=== PATIENT | male | born 1965 | race Caucasian/White ===

== ENCOUNTER 2020-01-09 00:08 | Inpatient (IN) | payer SELFPAY ==
[2020-01-09] MEDS ORDERED: Ondansetron 4 MG/2 ML SDV IVPUSH ONE (00:38)
[2020-01-09] MEDS ORDERED: Famotidine 20 MG/2 ML SDV IVPUSH ONE (00:38)
[2020-01-09] MEDS ORDERED: HYDROmorphone 0.5 MG/0.5 ML Syringe IVPUSH ONE ×3 (00:38→02:57)
[2020-01-09] MEDS ORDERED: Sodium Chloride 0.9% 1,000 ML IV SCH (00:45)
[2020-01-09] MEDS: Sodium Chloride 0.9% 10 ML Syringe FLUSH PRN (00:50)
--- NOTE | 2020-01-09 01:13 | EDM.PDOC ---
ED HPI GENERAL MEDICAL PROBLEM - General Chief Complaint: Genitourinary Problem Stated Complaint: [facility] Time Seen by Provider: 01/09/20 00:37 Source of Information: Reports: Patient, RN Notes Reviewed - History of Present Illness INITIAL COMMENTS - FREE TEXT/NARRATIVE: 54-year-old male has been brought here by [facility] for evaluation of nausea vomiting abdominal and flank discomfort. States he got sick 2 days ago with abdominal pain nausea vomiting. The vomiting has continued. He also has pain of the R abd and right flank radiating to the right back and also to the right groin. There has been no diarrhea. No obvious fever. No chest pain or difficulty breathing. No prior abd surgery. Right Groin Pain Score (Numeric/FACES): 9 - Related Data Allergies Allergy/AdvReac Type Severity Reaction Status Date / Time No Known Allergies Allergy Verified 01/09/20 01:04 Home Meds: Home Meds . [No Known Home Meds] 01/09/20 [History] Past Medical History - Past Health History Medical/Surgical History: Denies Medical/Surgical History Social & Family History - Family History Family Medical History: Noncontributory - Tobacco Use Used Tobacco, but Quit: No - Caffeine Use Caffeine Use: Reports: None - Recreational Drug Use Recreational Drug Use: No ED ROS GENERAL - Review of Systems Review Of Systems: See Below Constitutional: Reports: Chills. Denies: Fever HEENT: Reports: No Symptoms Respiratory: Denies: Shortness of Breath Cardiovascular: Denies: Chest Pain GI/Abdominal: Reports: Abdominal Pain, Nausea, Vomiting. Denies: Diarrhea, Hematochezia, Melena : Reports: No Symptoms Musculoskeletal: Reports: Back Pain (Sided) Skin: Reports: No Symptoms Neurological: Reports: Dizziness ED EXAM, GI/ABD - Physical Exam Exam: See Below General Appearance: Alert, Moderate Distress Throat/Mouth: Normal Inspection, Normal Oropharynx Head: Atraumatic Neck: Supple Respiratory/Chest: No Respiratory Distress, Lungs Clear, Normal Breath Sounds Cardiovascular: Regular Rate, Rhythm GI/Abdominal Exam: Guarding, Rebound, Tender (Tender right lower abdomen but also tender mid abdomen and right upper abdomen) Back Exam: CVA Tenderness (R) Extremities: Normal Inspection, Normal Range of Motion Neurological: Alert, No Motor/Sensory Deficits Skin Exam: Warm, Dry, Pallor Course - Vital Signs Last Recorded V/S: Last Vital Signs Temp 97.6 F 01/09/20 00:09 Pulse 105 H 01/09/20 05:30 Resp 20 01/09/20 03:00 BP 142/76 H 01/09/20 05:51 Pulse Ox 93 L 01/09/20 05:30 - Orders/Labs/Meds Orders: Active Orders 24 hr Category Date Time Status Admission Status [Patient Status] [ADT] Routine ADT 01/09/20 05:07 Active Peripheral IV Care [RC] . DIRECTED Care 01/09/20 00:38 Active Abdomen Pelvis wo Cont [CT] Stat Exams 01/09/20 00:39 Taken UA W/MICROSCOPIC [URIN] Stat Lab 01/09/20 00:30 Ordered Dextrose 5%-Lactated Ringers 1,000 ml Med 01/09/20 04:00 Active IV ASDIRECTED Sodium Chloride 0.9% [Normal Saline] 1,000 ml Med 01/09/20 00:45 Active IV ONETIME Sodium Chloride 0.9% [Saline Flush] Med 01/09/20 00:38 Active 10 ml FLUSH ASDIRECTED PRN Peripheral IV Insertion Adult [OM.PC] Stat Oth 01/09/20 00:38 Ordered Schedule Procedure [COMM] Stat Oth 01/09/20 01:39 Ordered Medication Orders Sodium Chloride (Normal Saline) 1,000 mls @ 999 mls/hr IV ONETIME [facility] Last Admin: 01/09/20 00:45 Dose: 999 mls/hr Dextrose/Lactated Ringer's (Dextrose 5%-Lactated Ringers) 1,000 mls @ 150 mls/ hr IV ASDIRECTED [facility] Last Admin: 01/09/20 04:00 Dose: 150 mls/hr Sodium Chloride (Saline Flush) 10 ml FLUSH ASDIRECTED PRN PRN Reason: Keep Vein Open Last Admin: 01/09/20 00:50 Dose: 10 ml Labs: Laboratory Tests 01/09/20 01/09/20 01/09/20 Range/Units 00:42 00:42 00:42 WBC 10.85 H (4.23-9.07) K/mm3 RBC 5.45 (4.63-6.08) M/mm3 Hgb 16.2 (13.7-17.5) gm/dl Hct 48.3 (40.1-51.0) % MCV 88.6 (79.0-92.2) fl MCH 29.7 (25.7-32.2) pg MCHC 33.5 (32.2-35.5) g/dl RDW Std Deviation 42.7 (35.1-43.9) fL Plt Count 369 H (163-337) K/mm3 MPV 9.5 (9.4-12.3) fl Neut % (Auto) 82.6 H (34.0-67.9) % Lymph % (Auto) 8.8 L (21.8-53.1) % [place] % (Auto) 7.9 (5.3-12.2) % Eos % (Auto) 0.3 L (0.8-7.0) Baso % (Auto) 0.1 (0.1-1.2) % Neut # (Auto) 8.96 H (1.78-5.38) K/mm3 Lymph # (Auto) 0.96 L (1.32-3.57) K/mm3 [place] # (Auto) 0.86 H (0.30-0.82) K/mm3 Eos # (Auto) 0.03 L (0.04-0.54) K/mm3 Baso # (Auto) 0.01 (0.01-0.08) K/mm3 Manual Slide Review Abnormal smear Sodium 137 (136-145) mEq/L Potassium 4.1 (3.5-5.1) mEq/L Chloride 101 (98-107) mEq/L Carbon Dioxide 21 (21-32) mEq/L Anion Gap 19.1 H (5-15) BUN 18 (7-18) mg/dL Creatinine 1.4 H (0.7-1.3) mg/dL Est Cr Clr Drug Dosing 72.09 mL/min Estimated GFR (MDRD) 53 (>60) mL/min BUN/Creatinine Ratio 12.9 L (14-18) Glucose 197 H (74-106) mg/dL Calcium 9.1 (8.5-10.1) mg/dL Total Bilirubin 0.9 (0.2-1.0) mg/dL AST 13 L (15-37) U/L ALT 25 (16-63) U/L Alkaline Phosphatase 41 L (46-116) U/L C-Reactive Protein 11.6 H* (<1.0) mg/dL Total Protein 8.2 (6.4-8.2) g/dl Albumin 3.9 (3.4-5.0) g/dl Globulin 4.3 gm/dL Albumin/Globulin Ratio 0.9 L (1-2) Meds: Medications Generic Name Dose Route Start Last Admin Trade Name Priya PRN Reason Stop Dose Admin Sodium Chloride 1,000 mls @ 999 mls/hr 01/09/20 00:45 01/09/20 00:45 Normal Saline IV 999 mls/hr ONETIME [facility] Administration Dextrose/Lactated Ringer's 1,000 mls @ 150 mls/hr 01/09/20 04:00 01/09/20 04: 00 Dextrose 5%-Lactated Ringers IV 150 mls/hr ASDIRECTED [facility] Administration Sodium Chloride 10 ml 01/09/20 00:38 01/09/20 00:50 Saline Flush FLUSH 10 ml ASDIRECTED PRN Administration Keep Vein Open Discontinued Medications Generic Name Dose Route Start Last Admin Trade Name Priya PRN Reason Stop Dose Admin Famotidine 20 mg 01/09/20 00:38 01/09/20 00:50 Pepcid IVPUSH 01/09/20 00:39 20 mg ONETIME ONE Administration Fentanyl Confirm 01/09/20 06:03 Sublimaze Administered 01/09/20 06:04 Dose 250 mcg .ROUTE .STK-MED ONE Hydromorphone HCl 0.5 mg 01/09/20 00:38 01/09/20 00:49 Dilaudid IVPUSH 01/09/20 00:39 0.5 mg ONETIME ONE Administration Hydromorphone HCl 0.25 mg 01/09/20 01:35 01/09/20 01:38 Dilaudid IVPUSH 01/09/20 01:36 0.25 mg ONETIME ONE Administration Hydromorphone HCl 0.5 mg 01/09/20 02:57 01/09/20 03:01 Dilaudid IVPUSH 01/09/20 02:58 0.5 mg ONETIME ONE Administration Ertapenem 1 gm/ Sodium 50 mls @ 100 mls/hr 01/09/20 01:38 01/09/20 01:48 Chloride IV 01/09/20 02:07 100 mls/hr ONETIME ONE Administration Lactated Ringer's 1,000 mls @ 999 mls/hr 01/09/20 02:12 01/09/20 02:55 Ringers, Lactated IV 01/09/20 03:12 999 mls/hr .BOLUS ONE Administration Dextrose/Lactated Ringer's Confirm 01/09/20 03:55 01/09/20 05:22 Dextrose 5%-Lactated Ringers Administered 01/09/20 03:56 Not Given Dose 1,000 mls @ as directed .ROUTE .STK-MED ONE Lactated Ringer's Confirm 01/09/20 06:04 Ringers, Lactated Administered 01/09/20 06:05 Dose 1,000 mls @ as directed .ROUTE .STK-MED ONE Lidocaine HCl Confirm 01/09/20 05:32 Xylocaine 1% Administered 01/09/20 05:33 Dose 50 ml .ROUTE .STK-MED ONE Midazolam HCl Confirm 01/09/20 06:02 Versed 1 Mg/Ml Administered 01/09/20 06:03 Dose 2 mg .ROUTE .STK-MED ONE Ondansetron HCl 4 mg 01/09/20 00:38 01/09/20 00:50 Zofran IVPUSH 01/09/20 00:39 4 mg ONETIME ONE Administration Propofol Confirm 01/09/20 06:02 Diprivan 20 Ml Administered 01/09/20 06:03 Dose 200 mg .ROUTE .STK-MED ONE - Re-Assessments/Exams Free Text/Narrative Re-Assessment/Exam: 01/09/20 01:40. Viread is called, patient has acute appendicitis inflamed dilated appendix but no perforation or abscess at this time. Would count has come back elevated in the 10,000 range. C-reactive protein of greater than 12. I have discussed this with Dr. Welch, Gen. Surgeon button broacher. He agrees with plan to start IV abx, have requested invanz. He would like the OR crew called to be ready to operate at 6 AM. 01:55. We will keep patient in ED, continue IV fluid, IV pain medication as needed until it is time for him to go over for surgery. Departure - Departure Time of Disposition: 02:13 Disposition: DC/Tfer to [facility] Condition: Fair Clinical Impression: Appendicitis Qualifiers: Appendicitis type: acute appendicitis Acute appendicitis type: unspecified acute appendicitis type Qualified Code(s): K35.80 - Unspecified acute appendicitis - Discharge Information Sepsis Event Note - Evaluation Sepsis Screening Result: No Definite Risk - Focused Exam Vital Signs: Vital Signs Temp Pulse Pulse Resp BP Pulse Ox 01/09/20 05:51 142/76 H 01/09/20 05:30 105 H 93 L 01/09/20 05:15 107 H 94 L 01/09/20 05:00 108 H 92 L 01/09/20 04:45 101 H 94 L 01/09/20 04:30 106 H 93 L 01/09/20 04:15 103 H 92 L 01/09/20 04:00 99 92 L 01/09/20 03:45 98 91 L 01/09/20 03:30 99 92 L 01/09/20 03:15 100 91 L 01/09/20 03:00 98 20 92 L 01/09/20 02:45 98 17 91 L 01/09/20 02:30 98 19 91 L 01/09/20 02:15 94 20 93 L 01/09/20 02:00 90 21 H 93 L 01/09/20 01:51 95 18 93 L 01/09/20 00:09 97.6 F 92 20 163/88 H 97 Date Exam was Performed: 01/09/20 Time Exam was Performed: 06:06 - My Orders Last 24 Hours: My Active Orders 01/09/20 00:30 UA W/MICROSCOPIC [URIN] Stat 01/09/20 00:38 Peripheral IV Care [RC] . DIRECTED Sodium Chloride 0.9% [Saline Flush] 10 ml FLUSH ASDIRECTED PRN Peripheral IV Insertion Adult [OM.PC] Stat 01/09/20 00:39 Abdomen Pelvis wo Cont [CT] Stat 01/09/20 00:45 Sodium Chloride 0.9% [Normal Saline] 1,000 ml IV ONETIME 01/09/20 01:39 Schedule Procedure [COMM] Stat 01/09/20 04:00 Dextrose 5%-Lactated Ringers 1,000 ml IV ASDIRECTED 01/09/20 05:07 Admission Status [Patient Status] [ADT] Routine - Assessment/Plan Last 24 Hours: My Active Orders 01/09/20 00:30 UA W/MICROSCOPIC [URIN] Stat 01/09/20 00:38 Peripheral IV Care [RC] . DIRECTED Sodium Chloride 0.9% [Saline Flush] 10 ml FLUSH ASDIRECTED PRN Peripheral IV Insertion Adult [OM.PC] Stat 01/09/20 00:39 Abdomen Pelvis wo Cont [CT] Stat 01/09/20 00:45 Sodium Chloride 0.9% [Normal Saline] 1,000 ml IV ONETIME 01/09/20 01:39 Schedule Procedure [COMM] Stat 01/09/20 04:00 Dextrose 5%-Lactated Ringers 1,000 ml IV ASDIRECTED 01/09/20 05:07 Admission Status [Patient Status] [ADT] Routine
[2020-01-09] MEDS ORDERED: Ertapenem 1 GM in Sodium Chloride 0.9% 50 ML IV ONE (01:38)
[2020-01-09] MEDS ORDERED: Lactated Ringers 1,000 ML IV ONE (02:12)
[2020-01-09] MEDS ORDERED: Dextrose 5%-Lactated Ringers 1,000 ML ONE (03:55)
[2020-01-09] MEDS ORDERED: Dextrose 5%-Lactated Ringers 1,000 ML IV SCH (04:00)
[2020-01-09] MEDS ORDERED: Lidocaine 1% 50 ML MDV ONE (05:32)
--- NOTE | 2020-01-09 05:57 | PCM.PREANE ---
Preanesthetic Assessment - Review of Systems Other: Reports: None - Physical Assessment NPO Status Date: 01/08/20 NPO Status Time: 21:00 Vital Signs: Last Vital Signs Temp 97.6 F 01/09/20 00:09 Pulse 106 H 01/09/20 04:30 Resp 20 01/09/20 03:00 BP 163/88 H 01/09/20 00:09 Pulse Ox 93 L 01/09/20 04:30 Height: 1.91 m Weight: 99.79 kg ASA Class: 2E Mental Status: Alert & Oriented x3 Airway Class: Mallampati = 3 Dentition: Reports: Normal Dentition Thyro-Mental Finger Breadths: 3 Mouth Opening Finger Breadths: 3 ROM/Head Extension: Full Lungs: Clear to Auscultation, Normal Respiratory Effort Cardiovascular: Regular Rate, Regular Rhythm - Lab Values: Laboratory Last Values WBC 10.85 K/mm3 (4.23-9.07) H 01/09/20 00:42 RBC 5.45 M/mm3 (4.63-6.08) 01/09/20 00:42 Hgb 16.2 gm/dl (13.7-17.5) 01/09/20 00:42 Hct 48.3 % (40.1-51.0) 01/09/20 00:42 MCV 88.6 fl (79.0-92.2) 01/09/20 00:42 MCH 29.7 pg (25.7-32.2) 01/09/20 00:42 MCHC 33.5 g/dl (32.2-35.5) 01/09/20 00:42 RDW Std Deviation 42.7 fL (35.1-43.9) 01/09/20 00:42 Plt Count 369 K/mm3 (163-337) H 01/09/20 00:42 MPV 9.5 fl (9.4-12.3) 01/09/20 00:42 Neut % (Auto) 82.6 % (34.0-67.9) H 01/09/20 00:42 Lymph % (Auto) 8.8 % (21.8-53.1) L 01/09/20 00:42 [place] % (Auto) 7.9 % (5.3-12.2) 01/09/20 00:42 Eos % (Auto) 0.3 (0.8-7.0) L 01/09/20 00:42 Baso % (Auto) 0.1 % (0.1-1.2) 01/09/20 00:42 Neut # (Auto) 8.96 K/mm3 (1.78-5.38) H 01/09/20 00:42 Lymph # (Auto) 0.96 K/mm3 (1.32-3.57) L 01/09/20 00:42 [place] # (Auto) 0.86 K/mm3 (0.30-0.82) H 01/09/20 00:42 Eos # (Auto) 0.03 K/mm3 (0.04-0.54) L 01/09/20 00:42 Baso # (Auto) 0.01 K/mm3 (0.01-0.08) 01/09/20 00:42 Manual Slide Review Abnormal smear 01/09/20 00:42 Sodium 137 mEq/L (136-145) 01/09/20 00:42 Potassium 4.1 mEq/L (3.5-5.1) 01/09/20 00:42 Chloride 101 mEq/L (98-107) 01/09/20 00:42 Carbon Dioxide 21 mEq/L (21-32) 01/09/20 00:42 Anion Gap 19.1 (5-15) H 01/09/20 00:42 BUN 18 mg/dL (7-18) 01/09/20 00:42 Creatinine 1.4 mg/dL (0.7-1.3) H 01/09/20 00:42 Est Cr Clr Drug Dosing 72.09 mL/min 01/09/20 00:42 Estimated GFR (MDRD) 53 mL/min (>60) 01/09/20 00:42 BUN/Creatinine Ratio 12.9 (14-18) L 01/09/20 00:42 Glucose 197 mg/dL (74-106) H 01/09/20 00:42 Calcium 9.1 mg/dL (8.5-10.1) 01/09/20 00:42 Total Bilirubin 0.9 mg/dL (0.2-1.0) 01/09/20 00:42 AST 13 U/L (15-37) L 01/09/20 00:42 ALT 25 U/L (16-63) 01/09/20 00:42 Alkaline Phosphatase 41 U/L (46-116) L 01/09/20 00:42 C-Reactive Protein 11.6 mg/dL (<1.0) H* 01/09/20 00:42 Total Protein 8.2 g/dl (6.4-8.2) 01/09/20 00:42 Albumin 3.9 g/dl (3.4-5.0) 01/09/20 00:42 Globulin 4.3 gm/dL 01/09/20 00:42 Albumin/Globulin Ratio 0.9 (1-2) L 01/09/20 00:42 - Allergies Allergies/Adverse Reactions: Allergies Allergy/AdvReac Type Severity Reaction Status Date / Time No Known Allergies Allergy Verified 01/09/20 01:04 - Acknowledgements Anesthesia Type Planned: General Anesthesia Pt an Appropriate Candidate for the Planned Anesthesia: Yes Alternatives and Risks of Anesthesia Discussed w Pt/Guardian: Yes Pt/Guardian Understands and Agrees with Anesthesia Plan: Yes PreAnesthesia Questionnaire - Past Health History Medical/Surgical History: Denies Medical/Surgical History - SUBSTANCE USE Tobacco Use Within Last Twelve Months: Smokeless Tobacco Recreational Drug Use History: No - HOME MEDS Home Medications: Home Meds . [No Known Home Meds] 01/09/20 [History] - CURRENT (IN HOUSE) MEDS Current Meds: Current Medications Sodium Chloride (Normal Saline) 1,000 mls @ 999 mls/hr IV ONETIME [facility] Last Admin: 01/09/20 00:45 Dose: 999 mls/hr Dextrose/Lactated Ringer's (Dextrose 5%-Lactated Ringers) 1,000 mls @ 150 mls/ hr IV ASDIRECTED [facility] Last Admin: 01/09/20 04:00 Dose: 150 mls/hr Sodium Chloride (Saline Flush) 10 ml FLUSH ASDIRECTED PRN PRN Reason: Keep Vein Open Last Admin: 01/09/20 00:50 Dose: 10 ml Discontinued Medications Famotidine (Pepcid) 20 mg IVPUSH ONETIME ONE Stop: 01/09/20 00:39 Last Admin: 01/09/20 00:50 Dose: 20 mg Hydromorphone HCl (Dilaudid) 0.5 mg IVPUSH ONETIME ONE Stop: 01/09/20 00:39 Last Admin: 01/09/20 00:49 Dose: 0.5 mg Hydromorphone HCl (Dilaudid) 0.25 mg IVPUSH ONETIME ONE Stop: 01/09/20 01:36 Last Admin: 01/09/20 01:38 Dose: 0.25 mg Hydromorphone HCl (Dilaudid) 0.5 mg IVPUSH ONETIME ONE Stop: 01/09/20 02:58 Last Admin: 01/09/20 03:01 Dose: 0.5 mg Ertapenem 1 gm/ Sodium (Chloride) 50 mls @ 100 mls/hr IV ONETIME ONE Stop: 01/09/20 02:07 Last Admin: 01/09/20 01:48 Dose: 100 mls/hr Lactated Ringer's (Ringers, Lactated) 1,000 mls @ 999 mls/hr IV .BOLUS ONE Stop: 01/09/20 03:12 Last Admin: 01/09/20 02:55 Dose: 999 mls/hr Dextrose/Lactated Ringer's (Dextrose 5%-Lactated Ringers) Confirm Administered Dose 1,000 mls @ as directed .ROUTE .STK-MED ONE Stop: 01/09/20 03:56 Last Admin: 01/09/20 05:22 Dose: Not Given Lidocaine HCl (Xylocaine 1%) Confirm Administered Dose 50 ml .ROUTE .STK-MED ONE Stop: 01/09/20 05:33 Ondansetron HCl (Zofran) 4 mg IVPUSH ONETIME ONE Stop: 01/09/20 00:39 Last Admin: 01/09/20 00:50 Dose: 4 mg
[2020-01-09] MEDS ORDERED: Propofol 200 MG/20 ML SDV ONE (06:02)
[2020-01-09] MEDS ORDERED: Midazolam 1 MG/ML 2 ML SDV ONE (06:02)
[2020-01-09] MEDS ORDERED: fentaNYL 250 MCG/5 ML SDV ONE (06:03)
[2020-01-09] MEDS ORDERED: Lidocaine 1% 6 ML ONE (06:04)
[2020-01-09] MEDS ORDERED: Lactated Ringers 1,000 ML ONE ×2 (06:04→06:39)
[2020-01-09] MEDS ORDERED: Rocuronium 50 MG/5 ML Vial ONE (06:06)
[2020-01-09] MEDS ORDERED: Succinylcholine/Sod PF 100 MG/5 ML SYRINGE IV ONE (06:08)
--- NOTE | 2020-01-09 06:12 | PCM.HP.2 ---
H&P History of Present Illness - General Date of Service: 01/09/20 Admit Problem/Dx: Admission Diagnosis/Problem Admission Diagnosis/Problem Appendicitis Source of Information: Patient History Limitations: Reports: No Limitations - History of Present Illness Initial Comments - Free Text/Narative: Patient started having abdominal pain 2 days prior to presentation. The pain was sharp, located in the RLQ, radiating to the right scrotum, associated with nausea and vomiting. Patient reports no fevers or chills. He reports that he could not keep anything down. Pain progressively got worse until yesterday where he could not get up from a bathroom thats when he called an ambulance and taken to the ED. Onset of Symptoms: Reports: Gradual Duration of Symptoms: Reports: Getting Worse Location: Reports: Abdomen Quality: Reports: Sharp Severity: Severe Improves with: Reports: Immobilization Worsens with: Reports: Movement Associated Symptoms: Reports: Loss of Appetite, Nausea/Vomiting Right Groin Pain Score (Numeric/FACES): 9 - Related Data Allergies/Adverse Reactions: Allergies Allergy/AdvReac Type Severity Reaction Status Date / Time No Known Allergies Allergy Verified 01/09/20 01:04 Home Medications: Home Meds . [No Known Home Meds] 01/09/20 [History] Past Medical History - Past Health History Medical/Surgical History: Denies Medical/Surgical History Social & Family History - Family History Family Medical History: Noncontributory - Tobacco Use Used Tobacco, but Quit: No - Caffeine Use Caffeine Use: Reports: None - Recreational Drug Use Recreational Drug Use: No H&P Review of Systems - Review of Systems: Review Of Systems: See Below General: Reports: No Symptoms HEENT: Reports: No Symptoms Pulmonary: Reports: No Symptoms Cardiovascular: Reports: No Symptoms Gastrointestinal: Reports: Abdominal Pain, Vomiting Genitourinary: Reports: No Symptoms Skin: Reports: No Symptoms Psychiatric: Reports: No Symptoms Neurological: Reports: No Symptoms Exam - Exam Exam: See Below - Vital Signs Vital Signs: Last Vital Signs Temp 97.6 F 01/09/20 00:09 Pulse 105 H 01/09/20 05:30 Resp 20 01/09/20 03:00 BP 142/76 H 01/09/20 05:51 Pulse Ox 93 L 01/09/20 05:30 Weight: 99.79 kg - Exam General: Alert, Oriented, Cooperative, Moderate Distress Lungs: Clear to Auscultation, Normal Respiratory Effort Cardiovascular: Regular Rate, Regular Rhythm, Normal S1, Normal S2 GI/Abdominal Exam: Soft, Distended, Guarding, Tender (Male) Exam: Scrotum Tenderness (R) - Patient Data Lab Results Last 24 hrs: Laboratory Results - last 24 hr 01/09/20 01/09/20 01/09/20 Range/Units 00:42 00:42 00:42 WBC 10.85 H (4.23-9.07) K/mm3 RBC 5.45 (4.63-6.08) M/mm3 Hgb 16.2 (13.7-17.5) gm/dl Hct 48.3 (40.1-51.0) % MCV 88.6 (79.0-92.2) fl MCH 29.7 (25.7-32.2) pg MCHC 33.5 (32.2-35.5) g/dl RDW Std Deviation 42.7 (35.1-43.9) fL Plt Count 369 H (163-337) K/mm3 MPV 9.5 (9.4-12.3) fl Neut % (Auto) 82.6 H (34.0-67.9) % Lymph % (Auto) 8.8 L (21.8-53.1) % [place] % (Auto) 7.9 (5.3-12.2) % Eos % (Auto) 0.3 L (0.8-7.0) Baso % (Auto) 0.1 (0.1-1.2) % Neut # (Auto) 8.96 H (1.78-5.38) K/mm3 Lymph # (Auto) 0.96 L (1.32-3.57) K/mm3 [place] # (Auto) 0.86 H (0.30-0.82) K/mm3 Eos # (Auto) 0.03 L (0.04-0.54) K/mm3 Baso # (Auto) 0.01 (0.01-0.08) K/mm3 Manual Slide Review Abnormal smear Sodium 137 (136-145) mEq/L Potassium 4.1 (3.5-5.1) mEq/L Chloride 101 (98-107) mEq/L Carbon Dioxide 21 (21-32) mEq/L Anion Gap 19.1 H (5-15) BUN 18 (7-18) mg/dL Creatinine 1.4 H (0.7-1.3) mg/dL Est Cr Clr Drug Dosing 72.09 mL/min Estimated GFR (MDRD) 53 (>60) mL/min BUN/Creatinine Ratio 12.9 L (14-18) Glucose 197 H (74-106) mg/dL Calcium 9.1 (8.5-10.1) mg/dL Total Bilirubin 0.9 (0.2-1.0) mg/dL AST 13 L (15-37) U/L ALT 25 (16-63) U/L Alkaline Phosphatase 41 L (46-116) U/L C-Reactive Protein 11.6 H* (<1.0) mg/dL Total Protein 8.2 (6.4-8.2) g/dl Albumin 3.9 (3.4-5.0) g/dl Globulin 4.3 gm/dL Albumin/Globulin Ratio 0.9 L (1-2) Result Diagrams: 01/09/20 00:42 01/09/20 00:42 Sepsis Event Note - Evaluation Sepsis Screening Result: No Definite Risk - Focused Exam Vital Signs: Vital Signs Temp Pulse Pulse Resp BP Pulse Ox 01/09/20 05:51 142/76 H 01/09/20 05:30 105 H 93 L 01/09/20 05:15 107 H 94 L 01/09/20 05:00 108 H 92 L 01/09/20 04:45 101 H 94 L 01/09/20 04:30 106 H 93 L 01/09/20 04:15 103 H 92 L 01/09/20 04:00 99 92 L 01/09/20 03:45 98 91 L 01/09/20 03:30 99 92 L 01/09/20 03:15 100 91 L 01/09/20 03:00 98 20 92 L 01/09/20 02:45 98 17 91 L 01/09/20 02:30 98 19 91 L 01/09/20 02:15 94 20 93 L 01/09/20 02:00 90 21 H 93 L 01/09/20 01:51 95 18 93 L 01/09/20 00:09 97.6 F 92 20 163/88 H 97 Date Exam was Performed: 03/18/20 Time Exam was Performed: 06:07 Problem List Initiated/Reviewed/Updated: No Orders Last 24hrs: Active Orders 24 hr Category Date Time Status Admission Status [Patient Status] [ADT] Routine ADT 01/09/20 05:07 Active Peripheral IV Care [RC] . DIRECTED Care 01/09/20 00:38 Active Abdomen Pelvis wo Cont [CT] Stat Exams 01/09/20 00:39 Taken UA W/MICROSCOPIC [URIN] Stat Lab 01/09/20 00:30 Ordered Dextrose 5%-Lactated Ringers 1,000 ml Med 01/09/20 04:00 Active IV ASDIRECTED Sodium Chloride 0.9% [Normal Saline] 1,000 ml Med 01/09/20 00:45 Active IV ONETIME Sodium Chloride 0.9% [Saline Flush] Med 01/09/20 00:38 Active 10 ml FLUSH ASDIRECTED PRN Peripheral IV Insertion Adult [OM.PC] Stat Oth 01/09/20 00:38 Ordered Schedule Procedure [COMM] Stat Oth 01/09/20 01:39 Ordered Medication Orders Sodium Chloride (Normal Saline) 1,000 mls @ 999 mls/hr IV ONETIME [facility] Last Admin: 01/09/20 00:45 Dose: 999 mls/hr Dextrose/Lactated Ringer's (Dextrose 5%-Lactated Ringers) 1,000 mls @ 150 mls/ hr IV ASDIRECTED [facility] Last Admin: 01/09/20 04:00 Dose: 150 mls/hr Sodium Chloride (Saline Flush) 10 ml FLUSH ASDIRECTED PRN PRN Reason: Keep Vein Open Last Admin: 01/09/20 00:50 Dose: 10 ml Assessment/Plan Comment:: Patient has acute appendicitis with extensive periappendiceal inflammation. I recommended laparoscopic appendectomy, possible open. I discussed with the patient risks, benefits and alternatives. RIsks discussed include bleeding, infection, injury to adjacent structures, leak, need for further interventions, reactions to medications. Patient did not have other questions. Informed consent was obtained. We will proceed with surgery. - Mortality Measure Prognosis:: Good
[2020-01-09] MEDS ORDERED: HYDROmorphone 0.5 MG/0.5 ML Syringe IVPUSH PRN (06:29)
[2020-01-09] MEDS ORDERED: fentaNYL 100 MCG/2 ML SDV IVPUSH PRN (06:29)
[2020-01-09] MEDS ORDERED: Meperidine 50 MG/ML Vial IVPUSH ONE (07:00)
[2020-01-09] MEDS ORDERED: HYDROmorphone 0.5 MG/0.5 ML Syringe ONE (07:14)
[2020-01-09] MEDS ORDERED: Ondansetron 4 MG/2 ML SDV ONE (07:18)
--- NOTE | 2020-01-09 07:47 | CT ---
CT abdomen and pelvis Technique: Multiple axial sections were obtained from slightly below the top of the liver inferiorly through the pubic symphysis. Intravenous and oral contrast was not utilized. Comparison: No prior abdominal imaging is available. Findings: Inflammatory change is identified off the inferior cecum. Findings are most likely due to appendicitis. Other findings: Visualized lung bases show nothing acute. Liver and spleen show no focal parenchymal abnormality. Calcified gallstone is seen within the gallbladder. Adrenal glands show no nodule pancreas is within normal limits. Aorta shows no aneurysm. Kidneys show no abnormal calcifications or hydronephrosis. Aorta shows mild atherosclerotic change without aneurysm. No retroperitoneal adenopathy or mesenteric abnormalities are seen. No pelvic mass or adenopathy is seen. No free fluid is seen. Bone window settings were reviewed. No acute osseous finding is appreciated. Fat-containing umbilical hernia is noted. Impression: 1. Inflammatory change off the inferior cecum which is felt compatible with appendicitis. 2. Calcified gallstone. 3. Other findings believed to be incidental and nonacute as noted above. Diagnostic code #5 This report was dictated in MDT I agree with preliminary report from [facility], finalized on , 2:24 AM Central Time
[2020-01-09] MEDS ORDERED: Meperidine 50 MG/ML Vial ONE (07:54)
[2020-01-09] MEDS ORDERED: Metoprolol Tartrate 5 MG/5 ML SDV ONE (08:10)
--- NOTE | 2020-01-09 09:19 | PCM.POSTAN ---
POST ANESTHESIA ASSESSMENT - MENTAL STATUS Mental Status: Somnolent - VITAL SIGNS Vital Signs: First set of VSs in PACU BP 208/118 131 18 96% 99.8F after treatment rechecked 114/56 111 Last Vital Signs Temp 100.0 F 01/09/20 09:00 Pulse 109 H 01/09/20 09:00 Resp 14 01/09/20 09:00 BP 111/63 01/09/20 09:00 Pulse Ox 96 01/09/20 09:00 - RESPIRATORY Respiratory Status: Respiratory Rate WNL, Airway Patent (oral a/w 100) - CARDIOVASCULAR CV Status: Elevated Pulse Rate, Elevated Blood Pressure (treated with 3 mg of Metoprolol) - GASTROINTESTINAL GI Status: No Symptoms - PAIN Pain Score: 0 - POST OP HYDRATION Hydration Status: Adequate & Stable
[2020-01-09] MEDS: Acetaminophen 325 MG Tab PO SCH ×3 (09:22→20:16)
--- NOTE | 2020-01-09 10:01 | OR ---
DATE OF OPERATION: 01/09/2020 SURGEON: Chidi Welch MD PREOPERATIVE DIAGNOSIS: Acute appendicitis. POSTOPERATIVE DIAGNOSIS: Acute perforated appendicitis with peritonitis and abscess. OPERATION PERFORMED: Laparoscopic appendectomy. ESTIMATED BLOOD LOSS: 30. ANESTHESIA: General endotracheal. COMPLICATIONS: None. INDICATION AND CONSENT: The patient is a 54-year-old male who presented to the emergency department today with acute onset abdominal pain, nausea, vomiting for 2 days. Abdominal pain was located in the right lower quadrant and was sharp, severe, radiating to the groin and right scrotum. The patient has been at home, nauseated and vomiting for 2 days prior to presentation. At presentation, the patient could not tolerate any movement indicating peritonitis. CT scan was performed that revealed acute appendicitis with no signs of fluid collections. White count was 10. CRP was 11. I was called to be notified about the patient. I spoke to the patient and confirmed the peritonitis in the right abdomen as well as right scrotal tenderness without any swelling, and I reviewed the CT scan and labs. Offered the patient laparoscopic appendectomy, possible open. We discussed risks, benefits, and alternatives. Informed consent was obtained. DESCRIPTION OF PROCEDURE: The patient was taken to the operating room, placed in supine position. Following induction of general endotracheal anesthesia, the abdomen was clipped of any hair. The patient was padded. SCDs were placed. The patient had received Invanz in the emergency department, therefore no additional preop antibiotics were indicated. Then, the abdomen was prepped and draped in the usual sterile fashion. Formal time-out was performed prior to the start of the procedure. We began the procedure by injecting local anesthetic in the infraumbilical position and an incision was made. Subcutaneous tissues were dissected bluntly and umbilical stalk was elevated using a Naye clamp. Then, Veress needle was inserted into the abdomen and then the abdomen was insufflated to 15 mmHg. Then, a 12 mm trocar was placed under direct visualization of laparoscope. Quick inspection of the abdomen revealed no injury to the trocar or Veress needle insertion. There were loops of bowel stuck to the abdominal wall in the right lower quadrant and there was some maico pus clearly visible upon entry to the abdomen located in the right lower quadrant. Then, two additional 5 mm trocars were placed, one in the suprapubic position and another one in the left lower quadrant. Then, we turned our attention to the right lower quadrant. The bowels were bluntly taken down off the abdominal wall revealing walling off the small abscess in the right lateral abdomen. This was suctioned out with the suction-pasteurizer helper device. Then, there were dense adhesions around the appendix that were taken down bluntly. Then, the appendix was freed from the rest of the abdomen. There was clear perforation about 2 cm away from the appendiceal base. There was a clear oozing of intra-appendiceal contents. At this point, once the appendix was freed from surrounding structures, a window was made in the appendiceal base and then a 55 mm white load was used to transect the mesoappendix first. This was transected without any problems. There was no bleeding. Now, the appendix was clearly mobilized and visualized well going into the appendiceal base. Once again, the perforation was about 2 cm from the appendiceal base. Appendiceal base was slightly inflamed, but not severely to preclude transection. Therefore, another 55 mm blue load was brought into the field and the [place] was used to transect the appendiceal base. The transection was well away from the site of perforation and right on the appendiceal base, and after transection, the staple line was viewed and appeared to be intact without any bleeding or leakage. The cecum was again reinspected. There were no areas of compromise. The area of dissection was irrigated with 300mL of sterile saline. The rest of the abdomen was suctioned out of any inflammatory fluid and the appendix was taken from the abdomen. Once again, the abdomen was reinspected. There were no other issues. The fascia at the infraumbilical site was closed with 0 Vicryl stitches using Low-Erickson device and then the abdomen was desufflated. The rest of the trocars were removed and skin at all 3 sites were closed with 4-0 Monocryl. This marked the end of the procedure. At the end of the procedure, all instruments, sharps, and sponges were counted and found to be correct x2. EBL was about 30 mL. The patient was awoken from general anesthesia, extubated, and taken to the PACU in stable condition. The patient will be discharged home with 5 days of Cipro, Flagyl given peritonitis and extensive inflammation and perforation, and the patient will come back in 2 weeks for postop check. In the meantime, the patient will be told not to lift more than 20 pounds. MMCHATA /[id number] JANESSA
[2020-01-09] MEDS: Acetaminophen/oxyCODONE 325-5 MG Tab PO PRN ×2 (11:10→22:59)
[2020-01-09] MEDS ORDERED: Piperacillin/Tazobactam 4.5 GM in Sodium Chloride 0.9% 100 ML IV ONE (11:30)
[2020-01-09] MEDS: Lactated Ringers 1,000 ML IV SCH ×2 (11:45→20:27)
[2020-01-09] MEDS: HYDROmorphone 1 MG/ML Syringe IVPUSH PRN (17:49)
[2020-01-09] MEDS: Piperacillin/Tazobactam 4.5 GM in Sodium Chloride 0.9% 100 ML IV SCH (20:16)
[2020-01-09] MEDS: Ondansetron 4 MG/2 ML SDV IVPUSH PRN (23:40)
[2020-01-10] MEDS: Acetaminophen 325 MG Tab PO SCH ×4 (03:08→20:30)
[2020-01-10] MEDS: Piperacillin/Tazobactam 4.5 GM in Sodium Chloride 0.9% 100 ML IV SCH ×3 (03:08→20:03)
[2020-01-10] MEDS: HYDROmorphone 1 MG/ML Syringe IVPUSH PRN ×2 (05:43→12:08)
[2020-01-10] MEDS ORDERED: Scopolamine 1.5 MG Transdermal Patch TRDERM ONE (06:11)
[2020-01-10] MEDS: Acetaminophen/oxyCODONE 325-5 MG Tab PO PRN (08:50)
[2020-01-10] MEDS: Ondansetron 4 MG/2 ML SDV IVPUSH PRN ×2 (12:09→23:49)
[2020-01-10] MEDS ORDERED: Aluminum Hydroxide/Magnesium Hydroxide/Simethicone Susp 30 ML Cup PO ONE (12:30)
[2020-01-10] MEDS: Lactated Ringers 1,000 ML IV SCH (17:05)
[2020-01-10] MEDS: Ketorolac 15 MG/ML SDV IVPUSH PRN ×2 (17:05→23:39)
[2020-01-10] MEDS: Sodium Chloride 0.9% 10 ML Syringe FLUSH PRN (23:49)
[2020-01-11] MEDS: Acetaminophen 325 MG Tab PO SCH ×4 (02:40→15:22)
[2020-01-11] MEDS: Piperacillin/Tazobactam 4.5 GM in Sodium Chloride 0.9% 100 ML IV SCH ×3 (02:41→20:46)
[2020-01-11] MEDS: Ondansetron 4 MG/2 ML SDV IVPUSH PRN ×5 (02:54→21:51)
[2020-01-11] MEDS: HYDROmorphone 1 MG/ML Syringe IVPUSH PRN ×5 (02:54→21:52)
[2020-01-11] MEDS: Ketorolac 15 MG/ML SDV IVPUSH PRN (06:47)
--- NOTE | 2020-01-11 08:07 | PCM.SURGPN ---
- General Info Date of Service: 01/11/20 POD#: 2 Functional Status: Reports: Pain Controlled, Urinating Pain Score: 5 - Review of Systems General: Reports: No Symptoms HEENT: Reports: No Symptoms Pulmonary: Reports: No Symptoms Cardiovascular: Reports: No Symptoms Gastrointestinal: Reports: Abdominal Pain, Vomiting Genitourinary: Reports: No Symptoms - Patient Data Vitals - Most Recent: Last Vital Signs Temp 97.7 F 01/11/20 03:21 Pulse 85 01/11/20 03:21 Resp 18 01/11/20 03:21 BP 178/85 H 01/11/20 03:21 Pulse Ox 90 L 01/11/20 03:21 Weight - Most Recent: 93.077 kg I&O - Last 24 Hours: Intake & Output 01/10/20 01/11/20 01/11/20 22:59 06:59 14:59 Intake Total 1090 1017 Output Total 1000 Balance 90 1017 Lab Results Last 24 Hrs: Laboratory Results - last 24 hr 01/11/20 01/11/20 Range/Units 05:33 05:33 WBC 8.88 (4.23-9.07) K/mm3 RBC 4.15 L (4.63-6.08) M/mm3 Hgb 12.6 L (13.7-17.5) gm/dl Hct 37.6 L (40.1-51.0) % MCV 90.6 (79.0-92.2) fl MCH 30.4 (25.7-32.2) pg MCHC 33.5 (32.2-35.5) g/dl RDW Std Deviation 42.3 (35.1-43.9) fL Plt Count 257 (163-337) K/mm3 MPV 9.9 (9.4-12.3) fl Neut % (Auto) 83.0 H (34.0-67.9) % Lymph % (Auto) 9.0 L (21.8-53.1) % [place] % (Auto) 7.7 (5.3-12.2) % Eos % (Auto) 0.3 L (0.8-7.0) Baso % (Auto) 0.0 L (0.1-1.2) % Neut # (Auto) 7.37 H (1.78-5.38) K/mm3 Lymph # (Auto) 0.80 L (1.32-3.57) K/mm3 [place] # (Auto) 0.68 (0.30-0.82) K/mm3 Eos # (Auto) 0.03 L (0.04-0.54) K/mm3 Baso # (Auto) 0.00 L (0.01-0.08) K/mm3 Manual Slide Review Normal smear Sodium 143 (136-145) mEq/L Potassium 4.1 (3.5-5.1) mEq/L Chloride 106 (98-107) mEq/L Carbon Dioxide 27 (21-32) mEq/L Anion Gap 14.1 (5-15) BUN 20 H (7-18) mg/dL Creatinine 1.1 (0.7-1.3) mg/dL Est Cr Clr Drug Dosing 91.76 mL/min Estimated GFR (MDRD) > 60 (>60) mL/min BUN/Creatinine Ratio 18.2 H (14-18) Glucose 124 H (74-106) mg/dL Calcium 8.4 L (8.5-10.1) mg/dL Total Bilirubin 0.5 (0.2-1.0) mg/dL AST 10 L (15-37) U/L ALT 14 L (16-63) U/L Alkaline Phosphatase 26 L (46-116) U/L Total Protein 6.5 (6.4-8.2) g/dl Albumin 2.4 L (3.4-5.0) g/dl Globulin 4.1 gm/dL Albumin/Globulin Ratio 0.6 L (1-2) Med Orders - Current: Current Medications Acetaminophen (Tylenol) 650 mg PO Q6H [facility] Last Admin: 01/11/20 02:54 Dose: Not Given Hydromorphone HCl (Dilaudid) 1 mg IVPUSH Q4H PRN PRN Reason: Abdominal Pain Last Admin: 01/11/20 02:54 Dose: 1 mg Lactated Ringer's (Ringers, Lactated) 1,000 mls @ 125 mls/hr IV ASDIRECTED [facility] Last Admin: 01/10/20 17:05 Dose: 125 mls/hr Piperacillin Sod/Tazobactam (Sod 4.5 gm/ Sodium Chloride) 100 mls @ 25 mls/hr IV Q8H [facility] Last Admin: 01/11/20 02:41 Dose: 25 mls/hr Ketorolac Tromethamine (Toradol) 15 mg IVPUSH Q6H PRN PRN Reason: Abdominal Pain Last Admin: 01/11/20 06:47 Dose: 15 mg Ondansetron HCl (Zofran) 4 mg IVPUSH Q4H PRN PRN Reason: Nausea Last Admin: 01/11/20 02:54 Dose: 4 mg Oxycodone/Acetaminophen (Percocet 325-5 Mg) 1 tab PO Q6H PRN PRN Reason: Abdominal Pain Last Admin: 01/10/20 08:50 Dose: 1 tab Sodium Chloride (Saline Flush) 10 ml FLUSH ASDIRECTED PRN PRN Reason: Keep Vein Open Last Admin: 01/10/20 23:49 Dose: 10 ml Discontinued Medications Al Hydroxide/Mg Hydroxide (Mag-Al Plus) 30 ml PO ONETIME ONE Stop: 01/10/20 12:31 Last Admin: 01/10/20 12:42 Dose: 30 ml Famotidine (Pepcid) 20 mg IVPUSH ONETIME ONE Stop: 01/09/20 00:39 Last Admin: 01/09/20 00:50 Dose: 20 mg Fentanyl (Sublimaze) Confirm Administered Dose 250 mcg .ROUTE .STK-MED ONE Stop: 01/09/20 06:04 Fentanyl (Sublimaze) 100 mcg IVPUSH Q5M PRN PRN Reason: Pain Stop: 01/09/20 10:00 Glycopyrrolate () Confirm Administered Dose 1 mg .ROUTE .STK-MED ONE Stop: 01/09/20 08:03 Hydromorphone HCl (Dilaudid) 0.5 mg IVPUSH ONETIME ONE Stop: 01/09/20 00:39 Last Admin: 01/09/20 00:49 Dose: 0.5 mg Hydromorphone HCl (Dilaudid) 0.25 mg IVPUSH ONETIME ONE Stop: 01/09/20 01:36 Last Admin: 01/09/20 01:38 Dose: 0.25 mg Hydromorphone HCl (Dilaudid) 0.5 mg IVPUSH ONETIME ONE Stop: 01/09/20 02:58 Last Admin: 01/09/20 03:01 Dose: 0.5 mg Hydromorphone HCl (Dilaudid) 0.5 mg IVPUSH Q10M PRN PRN Reason: Pain (severe 7-10) Stop: 01/09/20 10:00 Hydromorphone HCl (Dilaudid) Confirm Administered Dose 0.5 mg .ROUTE .STK-MED ONE Stop: 01/09/20 07:15 Sodium Chloride (Normal Saline) 1,000 mls @ 999 mls/hr IV ONETIME [facility] Last Admin: 01/09/20 00:45 Dose: 999 mls/hr Ertapenem 1 gm/ Sodium (Chloride) 50 mls @ 100 mls/hr IV ONETIME ONE Stop: 01/09/20 02:07 Last Admin: 01/09/20 01:48 Dose: 100 mls/hr Lactated Ringer's (Ringers, Lactated) 1,000 mls @ 999 mls/hr IV .BOLUS ONE Stop: 01/09/20 03:12 Last Admin: 01/09/20 02:55 Dose: 999 mls/hr Dextrose/Lactated Ringer's (Dextrose 5%-Lactated Ringers) 1,000 mls @ 150 mls/ hr IV ASDIRECTED [facility] Last Admin: 01/09/20 04:00 Dose: 150 mls/hr Dextrose/Lactated Ringer's (Dextrose 5%-Lactated Ringers) Confirm Administered Dose 1,000 mls @ as directed .ROUTE .STK-MED ONE Stop: 01/09/20 03:56 Last Admin: 01/09/20 05:22 Dose: Not Given Lactated Ringer's (Ringers, Lactated) Confirm Administered Dose 1,000 mls @ as directed .ROUTE .STK-MED ONE Stop: 01/09/20 06:05 Lidocaine HCl (Xylocaine-Mpf 1%) Confirm Administered Dose 6 mls @ as directed .ROUTE .STK-MED ONE Stop: 01/09/20 06:05 Lactated Ringer's (Ringers, Lactated) Confirm Administered Dose 1,000 mls @ as directed .ROUTE .STK-MED ONE Stop: 01/09/20 06:40 Piperacillin Sod/Tazobactam (Sod 4.5 gm/ Sodium Chloride) 100 mls @ 200 mls/hr IV ONETIME ONE Stop: 01/09/20 11:59 Last Admin: 01/09/20 11:44 Dose: 200 mls/hr Lidocaine HCl (Xylocaine 1%) Confirm Administered Dose 50 ml .ROUTE .STK-MED ONE Stop: 01/09/20 05:33 Last Admin: 01/09/20 06:31 Dose: 25 ml Meperidine HCl (Meperidine) 50 mg IVPUSH ONETIME ONE Stop: 01/09/20 07:01 Last Admin: 01/09/20 13:52 Dose: Not Given Meperidine HCl (Meperidine) Confirm Administered Dose 50 mg .ROUTE .STK-MED ONE Stop: 01/09/20 07:55 Metoprolol Tartrate (Lopressor) Confirm Administered Dose 5 mg .ROUTE .STK-MED ONE Stop: 01/09/20 08:11 Midazolam HCl (Versed 1 Mg/Ml) Confirm Administered Dose 2 mg .ROUTE .STK-MED ONE Stop: 01/09/20 06:03 Neostigmine Methylsulfate (Neostigmine Methylsulfate) Confirm Administered Dose 5 mg .ROUTE .STK-MED ONE Stop: 01/09/20 08:03 Ondansetron HCl (Zofran) 4 mg IVPUSH ONETIME ONE Stop: 01/09/20 00:39 Last Admin: 01/09/20 00:50 Dose: 4 mg Ondansetron HCl (Zofran) Confirm Administered Dose 8 mg .ROUTE .STK-MED ONE Stop: 01/09/20 07:19 Propofol (Diprivan 20 Ml) Confirm Administered Dose 200 mg .ROUTE .STK-MED ONE Stop: 01/09/20 06:03 Rocuronium [place] (Zemuron) Confirm Administered Dose 50 mg .ROUTE .STK-MED ONE Stop: 01/09/20 06:07 Scopolamine (Transderm-Scop) 1.5 mg TRDERM Q72H ONE Stop: 01/10/20 06:12 Last Admin: 01/10/20 07:07 Dose: 1.5 mg - Exam Wound/Incisions: Healing Well General: Alert, Oriented, Cooperative, No Acute Distress Lungs: Clear to Auscultation, Normal Respiratory Effort GI/Abdominal Exam: Distended, Tender (RLQ) Sepsis Event Note - Evaluation Sepsis Screening Result: No Definite Risk - Focused Exam Vital Signs: Vital Signs Temp Pulse Resp BP Pulse Ox 01/11/20 03:21 97.7 F 85 18 178/85 H 90 L Date Exam was Performed: 01/11/20 Time Exam was Performed: 08:02 - Problem List Review Problem List Initiated/Reviewed/Updated: No - My Orders Last 24 Hours: Active Orders 24 hr Category Date Time Status Patient Status [ADT] Routine ADT 01/10/20 14:15 Active Nothing Per Oral Diet [DIET] Diet 01/10/20 Dinner Active COMPREHENSIVE METABOLIC PN,CMP [CHEM] DAILY Lab 01/12/20 05:00 Ordered Ketorolac [Toradol] Med 01/10/20 16:55 Active 15 mg IVPUSH Q6H PRN Medication Orders Acetaminophen (Tylenol) 650 mg PO Q6H [facility] Last Admin: 01/11/20 02:54 Dose: Not Given Admin: 01/10/20 20:30 Dose: Not Given Admin: 01/10/20 16:13 Dose: 650 mg Admin: 01/10/20 08:48 Dose: 650 mg Admin: 01/10/20 03:08 Dose: 650 mg Admin: 01/09/20 20:16 Dose: 650 mg Admin: 01/09/20 13:54 Dose: 650 mg Admin: 01/09/20 09:22 Dose: 650 mg Hydromorphone HCl (Dilaudid) 1 mg IVPUSH Q4H PRN PRN Reason: Abdominal Pain Last Admin: 01/11/20 02:54 Dose: 1 mg Admin: 01/10/20 12:08 Dose: 1 mg Admin: 01/10/20 05:43 Dose: 1 mg Admin: 01/09/20 17:49 Dose: 1 mg Lactated Ringer's (Ringers, Lactated) 1,000 mls @ 125 mls/hr IV ASDIRECTED [facility] Last Admin: 01/10/20 17:05 Dose: 125 mls/hr Infusion: 01/10/20 04:27 Dose: 125 mls/hr Admin: 01/09/20 20:27 Dose: 125 mls/hr Infusion: 01/09/20 19:45 Dose: 125 mls/hr Admin: 01/09/20 11:45 Dose: 125 mls/hr Piperacillin Sod/Tazobactam (Sod 4.5 gm/ Sodium Chloride) 100 mls @ 25 mls/hr IV Q8H [facility] Last Admin: 01/11/20 02:41 Dose: 25 mls/hr Infusion: 01/11/20 00:03 Dose: 25 mls/hr Admin: 01/10/20 20:03 Dose: 25 mls/hr Infusion: 01/10/20 15:13 Dose: 25 mls/hr Admin: 01/10/20 11:13 Dose: 25 mls/hr Infusion: 01/10/20 07:08 Dose: 25 mls/hr Admin: 01/10/20 03:08 Dose: 25 mls/hr Infusion: 01/10/20 00:16 Dose: 25 mls/hr Admin: 01/09/20 20:16 Dose: 25 mls/hr Ketorolac Tromethamine (Toradol) 15 mg IVPUSH Q6H PRN PRN Reason: Abdominal Pain Last Admin: 01/11/20 06:47 Dose: 15 mg Admin: 01/10/20 23:39 Dose: 15 mg Admin: 01/10/20 17:05 Dose: 15 mg Ondansetron HCl (Zofran) 4 mg IVPUSH Q4H PRN PRN Reason: Nausea Last Admin: 01/11/20 02:54 Dose: 4 mg Admin: 01/10/20 23:49 Dose: 4 mg Admin: 01/10/20 12:09 Dose: 4 mg Admin: 01/09/20 23:40 Dose: 4 mg Oxycodone/Acetaminophen (Percocet 325-5 Mg) 1 tab PO Q6H PRN PRN Reason: Abdominal Pain Last Admin: 01/10/20 08:50 Dose: 1 tab Admin: 01/09/20 22:59 Dose: 1 tab Admin: 01/09/20 11:10 Dose: 1 tab Sodium Chloride (Saline Flush) 10 ml FLUSH ASDIRECTED PRN PRN Reason: Keep Vein Open Last Admin: 01/10/20 23:49 Dose: 10 ml Admin: 01/09/20 00:50 Dose: 10 ml - Plan Plan (Free Text/Narrative):: POD2 s/p lap appendectomy with peritonitis and abscess. The patient has post operative ileus. Has low volume emesis yesterday. Still not passing flatus or BM today. - Keep NPO with IVF. Will change IVF to D5 1/2 NS - Continue Iv antibiotics - Encourage ambulation TID, sitting on chair, incentive spirometer - continue pain control with toradol and dilaudid - Awaiting return of bowel function.
[2020-01-11] MEDS: D5 1/2 NS w/ 20 mEq/L KCl 1,000 ML IV SCH (08:21)
[2020-01-11] MEDS ORDERED: Scopolamine 1.5 MG Transdermal Patch TRDERM PRN (14:24)
[2020-01-11] MEDS: Metoclopramide 10 MG/2 ML SDV IVPUSH PRN (17:37)
[2020-01-11] MEDS ORDERED: Metoclopramide 10 MG/2 ML SDV IVPUSH SCH (22:00)
[2020-01-12] MEDS: D5 1/2 NS w/ 20 mEq/L KCl 1,000 ML IV SCH ×2 (00:56→18:45)
[2020-01-12] MEDS: HYDROmorphone 1 MG/ML Syringe IVPUSH PRN ×4 (02:08→16:02)
[2020-01-12] MEDS: Ondansetron 4 MG/2 ML SDV IVPUSH PRN ×4 (02:11→16:02)
[2020-01-12] MEDS: Piperacillin/Tazobactam 4.5 GM in Sodium Chloride 0.9% 100 ML IV SCH ×3 (03:56→18:44)
[2020-01-12] MEDS: Ketorolac 15 MG/ML SDV IVPUSH PRN ×2 (08:22→18:44)
[2020-01-12] MEDS: Metoclopramide 10 MG/2 ML SDV IVPUSH PRN ×2 (08:32→20:27)
--- NOTE | 2020-01-12 13:21 | PCM.SURGPN ---
- General Info Date of Service: 01/12/20 POD#: 3 Functional Status: Reports: Pain Controlled, Ambulating, Urinating Pain Score: 3 - Review of Systems General: Reports: No Symptoms HEENT: Reports: No Symptoms Pulmonary: Reports: No Symptoms Cardiovascular: Reports: No Symptoms Gastrointestinal: Reports: Abdominal Pain Genitourinary: Reports: No Symptoms Musculoskeletal: Reports: No Symptoms Skin: Reports: No Symptoms Neurological: Reports: No Symptoms - Patient Data Vitals - Most Recent: Last Vital Signs Temp 97.9 F 01/12/20 12:12 Pulse 61 01/12/20 12:12 Resp 16 01/12/20 12:12 BP 130/86 01/12/20 12:12 Pulse Ox 98 01/12/20 12:12 Weight - Most Recent: 92.125 kg I&O - Last 24 Hours: Intake & Output 01/11/20 01/12/20 01/12/20 22:59 06:59 14:59 Intake Total 1337 860 Balance 1337 860 Lab Results Last 24 Hrs: Laboratory Results - last 24 hr 01/12/20 Range/Units 05:15 Sodium 142 (136-145) mEq/L Potassium 4.1 (3.5-5.1) mEq/L Chloride 106 (98-107) mEq/L Carbon Dioxide 24 (21-32) mEq/L Anion Gap 16.1 H (5-15) BUN 17 (7-18) mg/dL Creatinine 1.0 (0.7-1.3) mg/dL Est Cr Clr Drug Dosing 100.93 mL/min Estimated GFR (MDRD) > 60 (>60) mL/min BUN/Creatinine Ratio 17.0 (14-18) Glucose 116 H (74-106) mg/dL Calcium 8.2 L (8.5-10.1) mg/dL Phosphorus 1.9 L (2.6-4.7) mg/dL Magnesium 2.3 (1.8-2.4) mg/dl Med Orders - Current: Current Medications Hydromorphone HCl (Dilaudid) 1 mg IVPUSH Q4H PRN PRN Reason: Abdominal Pain Last Admin: 01/12/20 12:10 Dose: 1 mg Piperacillin Sod/Tazobactam (Sod 4.5 gm/ Sodium Chloride) 100 mls @ 25 mls/hr IV Q8H [facility] Last Admin: 01/12/20 10:53 Dose: 25 mls/hr Potassium Chloride/Dextrose/Sod Cl (D5 1/2 Ns W/ 20 Meq/L Kcl) 1,000 mls @ 75 mls/hr IV ASDIRECTED [facility] Last Admin: 01/12/20 00:56 Dose: 75 mls/hr Ketorolac Tromethamine (Toradol) 15 mg IVPUSH Q6H PRN PRN Reason: Abdominal Pain Last Admin: 01/12/20 08:22 Dose: 15 mg Metoclopramide HCl (Reglan) 5 mg IVPUSH Q8H PRN PRN Reason: Nausea/Vomiting Last Admin: 01/12/20 08:32 Dose: 5 mg Miscellaneous Information (Remove Patch) 0 ea TRDERM Q72H PRN PRN Reason: REMOVE SCOPOLAMINE PATCH Ondansetron HCl (Zofran) 4 mg IVPUSH Q4H PRN PRN Reason: Nausea Last Admin: 01/12/20 12:10 Dose: 4 mg Scopolamine (Transderm-Scop) 1.5 mg TRDERM Q72H PRN PRN Reason: Nausea/Vomiting Last Admin: 01/11/20 15:14 Dose: 1.5 mg Sodium Chloride (Saline Flush) 10 ml FLUSH ASDIRECTED PRN PRN Reason: Keep Vein Open Last Admin: 01/10/20 23:49 Dose: 10 ml Discontinued Medications Acetaminophen (Tylenol) 650 mg PO Q6H [facility] Last Admin: 01/11/20 15:22 Dose: Not Given Al Hydroxide/Mg Hydroxide (Mag-Al Plus) 30 ml PO ONETIME ONE Stop: 01/10/20 12:31 Last Admin: 01/10/20 12:42 Dose: 30 ml Famotidine (Pepcid) 20 mg IVPUSH ONETIME ONE Stop: 01/09/20 00:39 Last Admin: 01/09/20 00:50 Dose: 20 mg Fentanyl (Sublimaze) Confirm Administered Dose 250 mcg .ROUTE .STK-MED ONE Stop: 01/09/20 06:04 Fentanyl (Sublimaze) 100 mcg IVPUSH Q5M PRN PRN Reason: Pain Stop: 01/09/20 10:00 Glycopyrrolate () Confirm Administered Dose 1 mg .ROUTE .STK-MED ONE Stop: 01/09/20 08:03 Hydromorphone HCl (Dilaudid) 0.5 mg IVPUSH ONETIME ONE Stop: 01/09/20 00:39 Last Admin: 01/09/20 00:49 Dose: 0.5 mg Hydromorphone HCl (Dilaudid) 0.25 mg IVPUSH ONETIME ONE Stop: 01/09/20 01:36 Last Admin: 01/09/20 01:38 Dose: 0.25 mg Hydromorphone HCl (Dilaudid) 0.5 mg IVPUSH ONETIME ONE Stop: 01/09/20 02:58 Last Admin: 01/09/20 03:01 Dose: 0.5 mg Hydromorphone HCl (Dilaudid) 0.5 mg IVPUSH Q10M PRN PRN Reason: Pain (severe 7-10) Stop: 01/09/20 10:00 Hydromorphone HCl (Dilaudid) Confirm Administered Dose 0.5 mg .ROUTE .STK-MED ONE Stop: 01/09/20 07:15 Sodium Chloride (Normal Saline) 1,000 mls @ 999 mls/hr IV ONETIME [facility] Last Admin: 01/09/20 00:45 Dose: 999 mls/hr Ertapenem 1 gm/ Sodium (Chloride) 50 mls @ 100 mls/hr IV ONETIME ONE Stop: 01/09/20 02:07 Last Admin: 01/09/20 01:48 Dose: 100 mls/hr Lactated Ringer's (Ringers, Lactated) 1,000 mls @ 999 mls/hr IV .BOLUS ONE Stop: 01/09/20 03:12 Last Admin: 01/09/20 02:55 Dose: 999 mls/hr Dextrose/Lactated Ringer's (Dextrose 5%-Lactated Ringers) 1,000 mls @ 150 mls/ hr IV ASDIRECTED [facility] Last Admin: 01/09/20 04:00 Dose: 150 mls/hr Dextrose/Lactated Ringer's (Dextrose 5%-Lactated Ringers) Confirm Administered Dose 1,000 mls @ as directed .ROUTE .STK-MED ONE Stop: 01/09/20 03:56 Last Admin: 01/09/20 05:22 Dose: Not Given Lactated Ringer's (Ringers, Lactated) Confirm Administered Dose 1,000 mls @ as directed .ROUTE .STK-MED ONE Stop: 01/09/20 06:05 Lidocaine HCl (Xylocaine-Mpf 1%) Confirm Administered Dose 6 mls @ as directed .ROUTE .STK-MED ONE Stop: 01/09/20 06:05 Lactated Ringer's (Ringers, Lactated) Confirm Administered Dose 1,000 mls @ as directed .ROUTE .STK-MED ONE Stop: 01/09/20 06:40 Lactated Ringer's (Ringers, Lactated) 1,000 mls @ 125 mls/hr IV ASDIRECTED [facility] Last Admin: 01/10/20 17:05 Dose: 125 mls/hr Piperacillin Sod/Tazobactam (Sod 4.5 gm/ Sodium Chloride) 100 mls @ 200 mls/hr IV ONETIME ONE Stop: 01/09/20 11:59 Last Admin: 01/09/20 11:44 Dose: 200 mls/hr Lidocaine HCl (Xylocaine 1%) Confirm Administered Dose 50 ml .ROUTE .ST-MED ONE Stop: 01/09/20 05:33 Last Admin: 01/09/20 06:31 Dose: 25 ml Meperidine HCl (Meperidine) 50 mg IVPUSH ONETIME ONE Stop: 01/09/20 07:01 Last Admin: 01/09/20 13:52 Dose: Not Given Meperidine HCl (Meperidine) Confirm Administered Dose 50 mg .ROUTE .ST-MED ONE Stop: 01/09/20 07:55 Metoclopramide HCl (Reglan) 5 mg IVPUSH Q8HR [facility] Metoprolol Tartrate (Lopressor) Confirm Administered Dose 5 mg .ROUTE .STK-MED ONE Stop: 01/09/20 08:11 Midazolam HCl (Versed 1 Mg/Ml) Confirm Administered Dose 2 mg .ROUTE .STK-MED ONE Stop: 01/09/20 06:03 Neostigmine Methylsulfate (Neostigmine Methylsulfate) Confirm Administered Dose 5 mg .ROUTE .STK-MED ONE Stop: 01/09/20 08:03 Ondansetron HCl (Zofran) 4 mg IVPUSH ONETIME ONE Stop: 01/09/20 00:39 Last Admin: 01/09/20 00:50 Dose: 4 mg Ondansetron HCl (Zofran) Confirm Administered Dose 8 mg .ROUTE .STK-MED ONE Stop: 01/09/20 07:19 Oxycodone/Acetaminophen (Percocet 325-5 Mg) 1 tab PO Q6H PRN PRN Reason: Abdominal Pain Last Admin: 01/10/20 08:50 Dose: 1 tab Propofol (Diprivan 20 Ml) Confirm Administered Dose 200 mg .ROUTE .STK-MED ONE Stop: 01/09/20 06:03 Rocuronium [place] (Zemuron) Confirm Administered Dose 50 mg .ROUTE .STK-MED ONE Stop: 01/09/20 06:07 Scopolamine (Transderm-Scop) 1.5 mg TRDERM Q72H ONE Stop: 01/10/20 06:12 Last Admin: 01/10/20 07:07 Dose: 1.5 mg - Exam General: Alert, Oriented, Cooperative, No Acute Distress Lungs: Clear to Auscultation, Normal Respiratory Effort Cardiovascular: Regular Rate, Regular Rhythm, No Murmurs GI/Abdominal Exam: Soft, Non-Tender, No Organomegaly, No Distention Skin: Warm, Dry, Intact Sepsis Event Note - Evaluation Sepsis Screening Result: No Definite Risk - Focused Exam Vital Signs: Vital Signs Temp Pulse Resp BP Pulse Ox 01/12/20 12:12 97.9 F 61 16 130/86 98 01/12/20 08:26 98.1 F 66 22 H 147/93 H 97 01/12/20 06:22 97.9 F 74 16 150/66 H 92 L 01/12/20 02:16 98.2 F 78 16 179/73 H 89 L Date Exam was Performed: 01/12/20 Time Exam was Performed: 13:16 - Problem List Review Problem List Initiated/Reviewed/Updated: No - My Orders Last 24 Hours: Active Orders 24 hr Category Date Time Status Metoclopramide [Reglan] Med 01/11/20 17:09 Active 5 mg IVPUSH Q8H PRN Remove Patch Med 01/14/20 14:35 Active 0 ea TRDERM Q72H PRN Scopolamine [Transderm-Scop] Med 01/11/20 14:24 Active 1.5 mg TRDERM Q72H PRN Nasogastric Orogastric Tube Insertion [OM.PC] Routine Oth 01/11/20 13:07 Ordered Medication Orders Hydromorphone HCl (Dilaudid) 1 mg IVPUSH Q4H PRN PRN Reason: Abdominal Pain Last Admin: 01/12/20 12:10 Dose: 1 mg Admin: 01/12/20 06:11 Dose: 1 mg Admin: 01/12/20 02:08 Dose: 1 mg Admin: 01/11/20 21:52 Dose: 1 mg Admin: 01/11/20 16:52 Dose: 1 mg Admin: 01/11/20 13:15 Dose: 1 mg Admin: 01/11/20 08:20 Dose: 1 mg Admin: 01/11/20 02:54 Dose: 1 mg Admin: 01/10/20 12:08 Dose: 1 mg Admin: 01/10/20 05:43 Dose: 1 mg Admin: 01/09/20 17:49 Dose: 1 mg Piperacillin Sod/Tazobactam (Sod 4.5 gm/ Sodium Chloride) 100 mls @ 25 mls/hr IV Q8H [facility] Last Admin: 01/12/20 10:53 Dose: 25 mls/hr Infusion: 01/12/20 07:56 Dose: 25 mls/hr Admin: 01/12/20 03:56 Dose: 25 mls/hr Infusion: 01/12/20 00:46 Dose: 25 mls/hr Admin: 01/11/20 20:46 Dose: 25 mls/hr Infusion: 01/11/20 16:17 Dose: 25 mls/hr Admin: 01/11/20 12:17 Dose: 25 mls/hr Infusion: 01/11/20 06:41 Dose: 25 mls/hr Admin: 01/11/20 02:41 Dose: 25 mls/hr Infusion: 01/11/20 00:03 Dose: 25 mls/hr Admin: 01/10/20 20:03 Dose: 25 mls/hr Infusion: 01/10/20 15:13 Dose: 25 mls/hr Admin: 01/10/20 11:13 Dose: 25 mls/hr Infusion: 01/10/20 07:08 Dose: 25 mls/hr Admin: 01/10/20 03:08 Dose: 25 mls/hr Infusion: 01/10/20 00:16 Dose: 25 mls/hr Admin: 01/09/20 20:16 Dose: 25 mls/hr Potassium Chloride/Dextrose/Sod Cl (D5 1/2 Ns W/ 20 Meq/L Kcl) 1,000 mls @ 75 mls/hr IV ASDIRECTED [facility] Last Admin: 01/12/20 00:56 Dose: 75 mls/hr Infusion: 01/11/20 21:41 Dose: 75 mls/hr Admin: 01/11/20 08:21 Dose: 75 mls/hr Ketorolac Tromethamine (Toradol) 15 mg IVPUSH Q6H PRN PRN Reason: Abdominal Pain Last Admin: 01/12/20 08:22 Dose: 15 mg Admin: 01/11/20 06:47 Dose: 15 mg Admin: 01/10/20 23:39 Dose: 15 mg Admin: 01/10/20 17:05 Dose: 15 mg Metoclopramide HCl (Reglan) 5 mg IVPUSH Q8H PRN PRN Reason: Nausea/Vomiting Last Admin: 01/12/20 08:32 Dose: 5 mg Admin: 01/11/20 17:37 Dose: 5 mg Miscellaneous Information (Remove Patch) 0 ea TRDERM Q72H PRN PRN Reason: REMOVE SCOPOLAMINE PATCH Ondansetron HCl (Zofran) 4 mg IVPUSH Q4H PRN PRN Reason: Nausea Last Admin: 01/12/20 12:10 Dose: 4 mg Admin: 01/12/20 06:12 Dose: 4 mg Admin: 01/12/20 02:11 Dose: 4 mg Admin: 01/11/20 21:51 Dose: 4 mg Admin: 01/11/20 16:52 Dose: 4 mg Admin: 01/11/20 12:52 Dose: 4 mg Admin: 01/11/20 08:20 Dose: 4 mg Admin: 01/11/20 02:54 Dose: 4 mg Admin: 01/10/20 23:49 Dose: 4 mg Admin: 01/10/20 12:09 Dose: 4 mg Admin: 01/09/20 23:40 Dose: 4 mg Scopolamine (Transderm-Scop) 1.5 mg TRDERM Q72H PRN PRN Reason: Nausea/Vomiting Last Admin: 01/11/20 15:14 Dose: 1.5 mg Sodium Chloride (Saline Flush) 10 ml FLUSH ASDIRECTED PRN PRN Reason: Keep Vein Open Last Admin: 01/10/20 23:49 Dose: 10 ml Admin: 01/09/20 00:50 Dose: 10 ml - Plan Plan (Free Text/Narrative):: Has vomiting episodes yesterday and NGT attempt unsuccessful and refused additional attempts. Today, he reports no nausea, has passed flatus and tiny BM. Abd still distended and tympanic. Overall better than before. Plan - continue NPO with IV meds. If no nausea or vomiting by later today, we may start ice chips - Encourage ambulation QID - Phos is low, but we can't replace with PO meds yet. - Continue current IVF
[2020-01-13] MEDS: HYDROmorphone 1 MG/ML Syringe IVPUSH PRN (00:02)
[2020-01-13] MEDS: Ondansetron 4 MG/2 ML SDV IVPUSH PRN ×5 (00:02→20:32)
[2020-01-13] MEDS: Piperacillin/Tazobactam 4.5 GM in Sodium Chloride 0.9% 100 ML IV SCH ×3 (04:12→20:18)
[2020-01-13] MEDS: Ketorolac 15 MG/ML SDV IVPUSH PRN ×4 (04:15→23:04)
[2020-01-13] MEDS: D5 1/2 NS w/ 20 mEq/L KCl 1,000 ML IV SCH ×2 (09:20→22:15)
--- NOTE | 2020-01-13 11:01 | PCM.SURGPN ---
- General Info Date of Service: 01/13/20 POD#: 4 Functional Status: Reports: Urinating, Other (still has pain. His heartburn has worsened compared to yesterday. Walked twice yesterday) - Review of Systems General: Reports: No Symptoms HEENT: Reports: No Symptoms Pulmonary: Reports: No Symptoms Cardiovascular: Reports: No Symptoms Gastrointestinal: Reports: Abdominal Pain, Nausea Genitourinary: Reports: No Symptoms Musculoskeletal: Reports: No Symptoms - Patient Data Vitals - Most Recent: Last Vital Signs Temp 97.7 F 01/13/20 08:23 Pulse 62 01/13/20 08:23 Resp 16 01/13/20 00:08 BP 140/99 H 01/13/20 08:23 Pulse Ox 97 01/13/20 08:23 Weight - Most Recent: 91.762 kg I&O - Last 24 Hours: Intake & Output 01/12/20 01/13/20 01/13/20 22:59 06:59 14:59 Intake Total 1000 812 Output Total 3 Balance 1000 809 Lab Results Last 24 Hrs: Laboratory Results - last 24 hr 01/13/20 Range/Units 08:57 WBC 6.80 (4.23-9.07) K/mm3 RBC 3.94 L (4.63-6.08) M/mm3 Hgb 11.8 L (13.7-17.5) gm/dl Hct 36.6 L (40.1-51.0) % MCV 92.9 H (79.0-92.2) fl MCH 29.9 (25.7-32.2) pg MCHC 32.2 (32.2-35.5) g/dl RDW Std Deviation 43.0 (35.1-43.9) fL Plt Count 341 H D (163-337) K/mm3 MPV 8.8 L (9.4-12.3) fl Neutrophils % (Manual) 72 H (40-60) % Band Neutrophils % 0 (0-10) % Lymphocytes % (Manual) 23 (20-40) % Atypical Lymphs % 0 % Monocytes % (Manual) 4 (2-10) % Eosinophils % (Manual) 1 (0.8-7.0) % Basophils % (Manual) 0 L (0.2-1.2) Med Orders - Current: Current Medications Piperacillin Sod/Tazobactam (Sod 4.5 gm/ Sodium Chloride) 100 mls @ 25 mls/hr IV Q8H [facility] Last Admin: 01/13/20 04:12 Dose: 25 mls/hr Potassium Chloride/Dextrose/Sod Cl (D5 1/2 Ns W/ 20 Meq/L Kcl) 1,000 mls @ 75 mls/hr IV ASDIRECTED [facility] Last Admin: 01/13/20 09:20 Dose: 75 mls/hr Ketorolac Tromethamine (Toradol) 15 mg IVPUSH Q6H PRN PRN Reason: Abdominal Pain Last Admin: 01/13/20 04:15 Dose: 15 mg Metoclopramide HCl (Reglan) 5 mg IVPUSH Q8H PRN PRN Reason: Nausea/Vomiting Last Admin: 01/12/20 20:27 Dose: 5 mg Miscellaneous Information (Remove Patch) 0 ea TRDERM Q72H PRN PRN Reason: REMOVE SCOPOLAMINE PATCH Ondansetron HCl (Zofran) 4 mg IVPUSH Q4H PRN PRN Reason: Nausea Last Admin: 01/13/20 08:16 Dose: 4 mg Scopolamine (Transderm-Scop) 1.5 mg TRDERM Q72H PRN PRN Reason: Nausea/Vomiting Last Admin: 01/11/20 15:14 Dose: 1.5 mg Sodium Chloride (Saline Flush) 10 ml FLUSH ASDIRECTED PRN PRN Reason: Keep Vein Open Last Admin: 01/10/20 23:49 Dose: 10 ml Discontinued Medications Acetaminophen (Tylenol) 650 mg PO Q6H [facility] Last Admin: 01/11/20 15:22 Dose: Not Given Al Hydroxide/Mg Hydroxide (Mag-Al Plus) 30 ml PO ONETIME ONE Stop: 01/10/20 12:31 Last Admin: 01/10/20 12:42 Dose: 30 ml Famotidine (Pepcid) 20 mg IVPUSH ONETIME ONE Stop: 01/09/20 00:39 Last Admin: 01/09/20 00:50 Dose: 20 mg Fentanyl (Sublimaze) Confirm Administered Dose 250 mcg .ROUTE .STK-MED ONE Stop: 01/09/20 06:04 Fentanyl (Sublimaze) 100 mcg IVPUSH Q5M PRN PRN Reason: Pain Stop: 01/09/20 10:00 Glycopyrrolate () Confirm Administered Dose 1 mg .ROUTE .STK-MED ONE Stop: 01/09/20 08:03 Hydromorphone HCl (Dilaudid) 0.5 mg IVPUSH ONETIME ONE Stop: 01/09/20 00:39 Last Admin: 01/09/20 00:49 Dose: 0.5 mg Hydromorphone HCl (Dilaudid) 0.25 mg IVPUSH ONETIME ONE Stop: 01/09/20 01:36 Last Admin: 01/09/20 01:38 Dose: 0.25 mg Hydromorphone HCl (Dilaudid) 0.5 mg IVPUSH ONETIME ONE Stop: 01/09/20 02:58 Last Admin: 01/09/20 03:01 Dose: 0.5 mg Hydromorphone HCl (Dilaudid) 0.5 mg IVPUSH Q10M PRN PRN Reason: Pain (severe 7-10) Stop: 01/09/20 10:00 Hydromorphone HCl (Dilaudid) Confirm Administered Dose 0.5 mg .ROUTE .STK-MED ONE Stop: 01/09/20 07:15 Hydromorphone HCl (Dilaudid) 1 mg IVPUSH Q4H PRN PRN Reason: Abdominal Pain Last Admin: 01/13/20 00:02 Dose: 1 mg Sodium Chloride (Normal Saline) 1,000 mls @ 999 mls/hr IV ONETIME [facility] Last Admin: 01/09/20 00:45 Dose: 999 mls/hr Ertapenem 1 gm/ Sodium (Chloride) 50 mls @ 100 mls/hr IV ONETIME ONE Stop: 01/09/20 02:07 Last Admin: 01/09/20 01:48 Dose: 100 mls/hr Lactated Ringer's (Ringers, Lactated) 1,000 mls @ 999 mls/hr IV .BOLUS ONE Stop: 01/09/20 03:12 Last Admin: 01/09/20 02:55 Dose: 999 mls/hr Dextrose/Lactated Ringer's (Dextrose 5%-Lactated Ringers) 1,000 mls @ 150 mls/ hr IV ASDIRECTED [facility] Last Admin: 01/09/20 04:00 Dose: 150 mls/hr Dextrose/Lactated Ringer's (Dextrose 5%-Lactated Ringers) Confirm Administered Dose 1,000 mls @ as directed .ROUTE .STK-MED ONE Stop: 01/09/20 03:56 Last Admin: 01/09/20 05:22 Dose: Not Given Lactated Ringer's (Ringers, Lactated) Confirm Administered Dose 1,000 mls @ as directed .ROUTE .STK-MED ONE Stop: 01/09/20 06:05 Lidocaine HCl (Xylocaine-Mpf 1%) Confirm Administered Dose 6 mls @ as directed .ROUTE .STK-MED ONE Stop: 01/09/20 06:05 Lactated Ringer's (Ringers, Lactated) Confirm Administered Dose 1,000 mls @ as directed .ROUTE .STK-MED ONE Stop: 01/09/20 06:40 Lactated Ringer's (Ringers, Lactated) 1,000 mls @ 125 mls/hr IV ASDIRECTED [facility] Last Admin: 01/10/20 17:05 Dose: 125 mls/hr Piperacillin Sod/Tazobactam (Sod 4.5 gm/ Sodium Chloride) 100 mls @ 200 mls/hr IV ONETIME ONE Stop: 01/09/20 11:59 Last Admin: 01/09/20 11:44 Dose: 200 mls/hr Lidocaine HCl (Xylocaine 1%) Confirm Administered Dose 50 ml .ROUTE .STK-MED ONE Stop: 01/09/20 05:33 Last Admin: 01/09/20 06:31 Dose: 25 ml Meperidine HCl (Meperidine) 50 mg IVPUSH ONETIME ONE Stop: 01/09/20 07:01 Last Admin: 01/09/20 13:52 Dose: Not Given Meperidine HCl (Meperidine) Confirm Administered Dose 50 mg .ROUTE .STK-MED ONE Stop: 01/09/20 07:55 Metoclopramide HCl (Reglan) 5 mg IVPUSH Q8HR [facility] Metoprolol Tartrate (Lopressor) Confirm Administered Dose 5 mg .ROUTE .STK-MED ONE Stop: 01/09/20 08:11 Midazolam HCl (Versed 1 Mg/Ml) Confirm Administered Dose 2 mg .ROUTE .STK-MED ONE Stop: 01/09/20 06:03 Neostigmine Methylsulfate (Neostigmine Methylsulfate) Confirm Administered Dose 5 mg .ROUTE .STK-MED ONE Stop: 01/09/20 08:03 Ondansetron HCl (Zofran) 4 mg IVPUSH ONETIME ONE Stop: 01/09/20 00:39 Last Admin: 01/09/20 00:50 Dose: 4 mg Ondansetron HCl (Zofran) Confirm Administered Dose 8 mg .ROUTE .STK-MED ONE Stop: 01/09/20 07:19 Oxycodone/Acetaminophen (Percocet 325-5 Mg) 1 tab PO Q6H PRN PRN Reason: Abdominal Pain Last Admin: 01/10/20 08:50 Dose: 1 tab Propofol (Diprivan 20 Ml) Confirm Administered Dose 200 mg .ROUTE .STK-MED ONE Stop: 01/09/20 06:03 Rocuronium [place] (Zemuron) Confirm Administered Dose 50 mg .ROUTE .STK-MED ONE Stop: 01/09/20 06:07 Scopolamine (Transderm-Scop) 1.5 mg TRDERM Q72H ONE Stop: 01/10/20 06:12 Last Admin: 01/10/20 07:07 Dose: 1.5 mg - Exam Wound/Incisions: Healing Well, Dressing Dry and Intact, No Drainage General: Alert, Oriented, Cooperative HEENT: Pupils Equal Lungs: Clear to Auscultation, Normal Respiratory Effort Cardiovascular: Regular Rate, Regular Rhythm, No Murmurs GI/Abdominal Exam: Soft, Distended, Tender (appropriately) Sepsis Event Note - Evaluation Sepsis Screening Result: No Definite Risk - Focused Exam Vital Signs: Vital Signs Temp Pulse Resp BP Pulse Ox 01/13/20 08:23 97.7 F 62 140/99 H 97 01/13/20 04:25 58 L 142/95 H 94 L 01/13/20 00:13 171/89 H 01/13/20 00:08 98.2 F 69 16 93 L Date Exam was Performed: 01/13/20 Time Exam was Performed: 10:56 - Problem List Review Problem List Initiated/Reviewed/Updated: No - My Orders Last 24 Hours: Active Orders 24 hr Category Date Time Status CBC WITH MANUAL DIFF [HEME] Routine Lab 01/13/20 08:57 Results Remove Patch Med 01/14/20 14:35 Active 0 ea TRDERM Q72H PRN Medication Orders Piperacillin Sod/Tazobactam (Sod 4.5 gm/ Sodium Chloride) 100 mls @ 25 mls/hr IV Q8H [facility] Last Admin: 01/13/20 04:12 Dose: 25 mls/hr Infusion: 01/12/20 22:44 Dose: 25 mls/hr Admin: 01/12/20 18:44 Dose: 25 mls/hr Infusion: 01/12/20 14:53 Dose: 25 mls/hr Admin: 01/12/20 10:53 Dose: 25 mls/hr Infusion: 01/12/20 07:56 Dose: 25 mls/hr Admin: 01/12/20 03:56 Dose: 25 mls/hr Infusion: 01/12/20 00:46 Dose: 25 mls/hr Admin: 01/11/20 20:46 Dose: 25 mls/hr Infusion: 01/11/20 16:17 Dose: 25 mls/hr Admin: 01/11/20 12:17 Dose: 25 mls/hr Infusion: 01/11/20 06:41 Dose: 25 mls/hr Admin: 01/11/20 02:41 Dose: 25 mls/hr Infusion: 01/11/20 00:03 Dose: 25 mls/hr Admin: 01/10/20 20:03 Dose: 25 mls/hr Infusion: 01/10/20 15:13 Dose: 25 mls/hr Admin: 01/10/20 11:13 Dose: 25 mls/hr Infusion: 01/10/20 07:08 Dose: 25 mls/hr Admin: 01/10/20 03:08 Dose: 25 mls/hr Infusion: 01/10/20 00:16 Dose: 25 mls/hr Admin: 01/09/20 20:16 Dose: 25 mls/hr Potassium Chloride/Dextrose/Sod Cl (D5 1/2 Ns W/ 20 Meq/L Kcl) 1,000 mls @ 75 mls/hr IV ASDIRECTED [facility] Last Admin: 01/13/20 09:20 Dose: 75 mls/hr Infusion: 01/13/20 08:05 Dose: 75 mls/hr Admin: 01/12/20 18:45 Dose: 75 mls/hr Infusion: 01/12/20 14:16 Dose: 75 mls/hr Admin: 01/12/20 00:56 Dose: 75 mls/hr Infusion: 01/11/20 21:41 Dose: 75 mls/hr Admin: 01/11/20 08:21 Dose: 75 mls/hr Ketorolac Tromethamine (Toradol) 15 mg IVPUSH Q6H PRN PRN Reason: Abdominal Pain Last Admin: 01/13/20 04:15 Dose: 15 mg Admin: 01/12/20 18:44 Dose: 15 mg Admin: 01/12/20 08:22 Dose: 15 mg Admin: 01/11/20 06:47 Dose: 15 mg Admin: 01/10/20 23:39 Dose: 15 mg Admin: 01/10/20 17:05 Dose: 15 mg Metoclopramide HCl (Reglan) 5 mg IVPUSH Q8H PRN PRN Reason: Nausea/Vomiting Last Admin: 01/12/20 20:27 Dose: 5 mg Admin: 01/12/20 08:32 Dose: 5 mg Admin: 01/11/20 17:37 Dose: 5 mg Miscellaneous Information (Remove Patch) 0 ea TRDERM Q72H PRN PRN Reason: REMOVE SCOPOLAMINE PATCH Ondansetron HCl (Zofran) 4 mg IVPUSH Q4H PRN PRN Reason: Nausea Last Admin: 01/13/20 08:16 Dose: 4 mg Admin: 01/13/20 04:15 Dose: 4 mg Admin: 01/13/20 00:02 Dose: 4 mg Admin: 01/12/20 16:02 Dose: 4 mg Admin: 01/12/20 12:10 Dose: 4 mg Admin: 01/12/20 06:12 Dose: 4 mg Admin: 01/12/20 02:11 Dose: 4 mg Admin: 01/11/20 21:51 Dose: 4 mg Admin: 01/11/20 16:52 Dose: 4 mg Admin: 01/11/20 12:52 Dose: 4 mg Admin: 01/11/20 08:20 Dose: 4 mg Admin: 01/11/20 02:54 Dose: 4 mg Admin: 01/10/20 23:49 Dose: 4 mg Admin: 01/10/20 12:09 Dose: 4 mg Admin: 01/09/20 23:40 Dose: 4 mg Scopolamine (Transderm-Scop) 1.5 mg TRDERM Q72H PRN PRN Reason: Nausea/Vomiting Last Admin: 01/11/20 15:14 Dose: 1.5 mg Sodium Chloride (Saline Flush) 10 ml FLUSH ASDIRECTED PRN PRN Reason: Keep Vein Open Last Admin: 01/10/20 23:49 Dose: 10 ml Admin: 01/09/20 00:50 Dose: 10 ml - Assessment Assessment (Free Text/Narrative):: POD4 lap appy with abscess and peritonitis. Passing flatus but still has ileus and has nausea and heartburn due to ileus. WBC is 6 today, no fever, low likelihood for an abscess. - Plan Plan (Free Text/Narrative):: - discontinue dilaudid. We will only do Toradol for pain - Encourage ambulation. patient is to ambulate at least 4x a day - COntinue NPO, with current IVF and ice chips for comfort - He may try NGT today
[2020-01-13] MEDS ORDERED: Benzocaine 20% Oral Spray 59.2 ML Canister MUCMEM PRN (11:05)
[2020-01-13] MEDS: Metoclopramide 10 MG/2 ML SDV IVPUSH PRN ×2 (11:07→17:07)
[2020-01-14] MEDS: Piperacillin/Tazobactam 4.5 GM in Sodium Chloride 0.9% 100 ML IV SCH ×3 (02:57→18:37)
[2020-01-14] MEDS: Ketorolac 15 MG/ML SDV IVPUSH PRN ×3 (05:35→17:55)
[2020-01-14] MEDS: Ondansetron 4 MG/2 ML SDV IVPUSH PRN ×2 (05:35→18:09)
[2020-01-14] MEDS ORDERED: Benzocaine/Cetylpyridinium/Menthol Lozenge MUCMEM PRN (07:22)
--- NOTE | 2020-01-14 07:38 | CR ---
Chest: Portable view of the chest was obtained centered to the diaphragmatic junction. Comparison: No prior chest imaging. Nasogastric tube is seen. Tip lies within the region of the stomach. Lung markings appear to be increased but not seen well enough to make further comment about. Heart size at the upper limits of normal. Bowel gas pattern is slightly prominent and difficult to exclude ileus or partial small bowel obstruction. Impression: 1. Tip of nasogastric tube within the stomach. 2. Other findings as noted above. Diagnostic code #3 This report was dictated in MDT
[2020-01-14] MEDS ORDERED: diphenhydrAMINE 50 MG/ML SDV IVPUSH PRN (07:48)
[2020-01-14] MEDS ORDERED: Phenol 1.4% Oral Spray 177 ML Bottle MUCMEM PRN (07:52)
--- NOTE | 2020-01-14 07:56 | PCM.SURGPN ---
- General Info Date of Service: 01/14/20 POD#: 5 Functional Status: Reports: Pain Controlled, Ambulating, Urinating, Other ( coughing and ) - Review of Systems General: Reports: No Symptoms HEENT: Reports: No Symptoms Pulmonary: Reports: No Symptoms Cardiovascular: Reports: No Symptoms Gastrointestinal: Reports: Abdominal Pain Genitourinary: Reports: No Symptoms Musculoskeletal: Reports: No Symptoms Skin: Reports: No Symptoms Neurological: Reports: No Symptoms - Patient Data Vitals - Most Recent: Last Vital Signs Temp 97.9 F 01/14/20 03:06 Pulse 54 L 01/14/20 03:06 Resp 16 01/14/20 03:06 BP 141/83 H 01/14/20 03:06 Pulse Ox 97 01/14/20 03:06 Weight - Most Recent: 91.535 kg I&O - Last 24 Hours: Intake & Output 01/13/20 01/14/20 01/14/20 22:59 06:59 14:59 Intake Total 1120 Balance 1120 Lab Results Last 24 Hrs: Laboratory Results - last 24 hr 01/13/20 Range/Units 08:57 WBC 6.80 (4.23-9.07) K/mm3 RBC 3.94 L (4.63-6.08) M/mm3 Hgb 11.8 L (13.7-17.5) gm/dl Hct 36.6 L (40.1-51.0) % MCV 92.9 H (79.0-92.2) fl MCH 29.9 (25.7-32.2) pg MCHC 32.2 (32.2-35.5) g/dl RDW Std Deviation 43.0 (35.1-43.9) fL Plt Count 341 H D (163-337) K/mm3 MPV 8.8 L (9.4-12.3) fl Neutrophils % (Manual) 72 H (40-60) % Band Neutrophils % 0 (0-10) % Lymphocytes % (Manual) 23 (20-40) % Atypical Lymphs % 0 % Monocytes % (Manual) 4 (2-10) % Eosinophils % (Manual) 1 (0.8-7.0) % Basophils % (Manual) 0 L (0.2-1.2) Platelet Estimate Adequate RBC Morph Comment Normal Med Orders - Current: Current Medications Benzocaine (Hurricaine 20% [place]) 1 ml MUCMEM Q4H PRN PRN Reason: discomfort Benzocaine/Menthol (Cepacol Sore Throat) 1 lozenge MUCMEM Q2HR PRN PRN Reason: Sore Throat Diphenhydramine HCl (Benadryl) 25 mg IVPUSH BEDTIME PRN PRN Reason: Sleep Piperacillin Sod/Tazobactam (Sod 4.5 gm/ Sodium Chloride) 100 mls @ 25 mls/hr IV Q8H [facility] Last Admin: 01/14/20 02:57 Dose: 25 mls/hr Potassium Chloride/Dextrose/Sod Cl (D5 1/2 Ns W/ 20 Meq/L Kcl) 1,000 mls @ 75 mls/hr IV ASDIRECTED [facility] Last Admin: 01/13/20 22:15 Dose: 75 mls/hr Ketorolac Tromethamine (Toradol) 15 mg IVPUSH Q6H PRN PRN Reason: Abdominal Pain Last Admin: 01/14/20 05:35 Dose: 15 mg Metoclopramide HCl (Reglan) 5 mg IVPUSH Q8H PRN PRN Reason: Nausea/Vomiting Last Admin: 01/13/20 17:07 Dose: 5 mg Miscellaneous Information (Remove Patch) 0 ea TRDERM Q72H PRN PRN Reason: REMOVE SCOPOLAMINE PATCH Ondansetron HCl (Zofran) 4 mg IVPUSH Q4H PRN PRN Reason: Nausea Last Admin: 01/14/20 05:35 Dose: 4 mg Scopolamine (Transderm-Scop) 1.5 mg TRDERM Q72H PRN PRN Reason: Nausea/Vomiting Last Admin: 01/11/20 15:14 Dose: 1.5 mg Sodium Chloride (Saline Flush) 10 ml FLUSH ASDIRECTED PRN PRN Reason: Keep Vein Open Last Admin: 01/10/20 23:49 Dose: 10 ml Discontinued Medications Acetaminophen (Tylenol) 650 mg PO Q6H [facility] Last Admin: 01/11/20 15:22 Dose: Not Given Al Hydroxide/Mg Hydroxide (Mag-Al Plus) 30 ml PO ONETIME ONE Stop: 01/10/20 12:31 Last Admin: 01/10/20 12:42 Dose: 30 ml Famotidine (Pepcid) 20 mg IVPUSH ONETIME ONE Stop: 01/09/20 00:39 Last Admin: 01/09/20 00:50 Dose: 20 mg Fentanyl (Sublimaze) Confirm Administered Dose 250 mcg .ROUTE .STK-MED ONE Stop: 01/09/20 06:04 Fentanyl (Sublimaze) 100 mcg IVPUSH Q5M PRN PRN Reason: Pain Stop: 01/09/20 10:00 Glycopyrrolate () Confirm Administered Dose 1 mg .ROUTE .STK-MED ONE Stop: 01/09/20 08:03 Hydromorphone HCl (Dilaudid) 0.5 mg IVPUSH ONETIME ONE Stop: 01/09/20 00:39 Last Admin: 01/09/20 00:49 Dose: 0.5 mg Hydromorphone HCl (Dilaudid) 0.25 mg IVPUSH ONETIME ONE Stop: 01/09/20 01:36 Last Admin: 01/09/20 01:38 Dose: 0.25 mg Hydromorphone HCl (Dilaudid) 0.5 mg IVPUSH ONETIME ONE Stop: 01/09/20 02:58 Last Admin: 01/09/20 03:01 Dose: 0.5 mg Hydromorphone HCl (Dilaudid) 0.5 mg IVPUSH Q10M PRN PRN Reason: Pain (severe 7-10) Stop: 01/09/20 10:00 Hydromorphone HCl (Dilaudid) Confirm Administered Dose 0.5 mg .ROUTE .STK-MED ONE Stop: 01/09/20 07:15 Hydromorphone HCl (Dilaudid) 1 mg IVPUSH Q4H PRN PRN Reason: Abdominal Pain Last Admin: 01/13/20 00:02 Dose: 1 mg Sodium Chloride (Normal Saline) 1,000 mls @ 999 mls/hr IV ONETIME [facility] Last Admin: 01/09/20 00:45 Dose: 999 mls/hr Ertapenem 1 gm/ Sodium (Chloride) 50 mls @ 100 mls/hr IV ONETIME ONE Stop: 01/09/20 02:07 Last Admin: 01/09/20 01:48 Dose: 100 mls/hr Lactated Ringer's (Ringers, Lactated) 1,000 mls @ 999 mls/hr IV .BOLUS ONE Stop: 01/09/20 03:12 Last Admin: 01/09/20 02:55 Dose: 999 mls/hr Dextrose/Lactated Ringer's (Dextrose 5%-Lactated Ringers) 1,000 mls @ 150 mls/ hr IV ASDIRECTED [facility] Last Admin: 01/09/20 04:00 Dose: 150 mls/hr Dextrose/Lactated Ringer's (Dextrose 5%-Lactated Ringers) Confirm Administered Dose 1,000 mls @ as directed .ROUTE .STK-MED ONE Stop: 01/09/20 03:56 Last Admin: 01/09/20 05:22 Dose: Not Given Lactated Ringer's (Ringers, Lactated) Confirm Administered Dose 1,000 mls @ as directed .ROUTE .STK-MED ONE Stop: 01/09/20 06:05 Lidocaine HCl (Xylocaine-Mpf 1%) Confirm Administered Dose 6 mls @ as directed .ROUTE .STK-MED ONE Stop: 01/09/20 06:05 Lactated Ringer's (Ringers, Lactated) Confirm Administered Dose 1,000 mls @ as directed .ROUTE .STK-MED ONE Stop: 01/09/20 06:40 Lactated Ringer's (Ringers, Lactated) 1,000 mls @ 125 mls/hr IV ASDIRECTED [facility] Last Admin: 01/10/20 17:05 Dose: 125 mls/hr Piperacillin Sod/Tazobactam (Sod 4.5 gm/ Sodium Chloride) 100 mls @ 200 mls/hr IV ONETIME ONE Stop: 01/09/20 11:59 Last Admin: 01/09/20 11:44 Dose: 200 mls/hr Lidocaine HCl (Xylocaine 1%) Confirm Administered Dose 50 ml .ROUTE .STK-MED ONE Stop: 01/09/20 05:33 Last Admin: 01/09/20 06:31 Dose: 25 ml Meperidine HCl (Meperidine) 50 mg IVPUSH ONETIME ONE Stop: 01/09/20 07:01 Last Admin: 01/09/20 13:52 Dose: Not Given Meperidine HCl (Meperidine) Confirm Administered Dose 50 mg .ROUTE .STK-MED ONE Stop: 01/09/20 07:55 Metoclopramide HCl (Reglan) 5 mg IVPUSH Q8HR [facility] Metoprolol Tartrate (Lopressor) Confirm Administered Dose 5 mg .ROUTE .STK-MED ONE Stop: 01/09/20 08:11 Midazolam HCl (Versed 1 Mg/Ml) Confirm Administered Dose 2 mg .ROUTE .STK-MED ONE Stop: 01/09/20 06:03 Neostigmine Methylsulfate (Neostigmine Methylsulfate) Confirm Administered Dose 5 mg .ROUTE .STK-MED ONE Stop: 01/09/20 08:03 Ondansetron HCl (Zofran) 4 mg IVPUSH ONETIME ONE Stop: 01/09/20 00:39 Last Admin: 01/09/20 00:50 Dose: 4 mg Ondansetron HCl (Zofran) Confirm Administered Dose 8 mg .ROUTE .STK-MED ONE Stop: 01/09/20 07:19 Oxycodone/Acetaminophen (Percocet 325-5 Mg) 1 tab PO Q6H PRN PRN Reason: Abdominal Pain Last Admin: 01/10/20 08:50 Dose: 1 tab Propofol (Diprivan 20 Ml) Confirm Administered Dose 200 mg .ROUTE .STK-MED ONE Stop: 01/09/20 06:03 Rocuronium Terry (Zemuron) Confirm Administered Dose 50 mg .ROUTE .STK-MED ONE Stop: 01/09/20 06:07 Scopolamine (Transderm-Scop) 1.5 mg TRDERM Q72H ONE Stop: 01/10/20 06:12 Last Admin: 01/10/20 07:07 Dose: 1.5 mg - Exam General: Alert, Oriented, Cooperative Lungs: Clear to Auscultation, Normal Respiratory Effort Cardiovascular: Regular Rate, Regular Rhythm GI/Abdominal Exam: Soft, Non-Tender, Distended Extremities: Normal Inspection Sepsis Event Note - Evaluation Sepsis Screening Result: No Definite Risk - Focused Exam Vital Signs: Vital Signs Temp Pulse Resp BP Pulse Ox 01/14/20 03:06 97.9 F 54 L 16 141/83 H 97 01/13/20 19:58 97.5 F 61 16 152/76 H 95 Date Exam was Performed: 01/14/20 Time Exam was Performed: 07:50 - Problem List Review Problem List Initiated/Reviewed/Updated: No - My Orders Last 24 Hours: Active Orders 24 hr Category Date Time Status Up With Assistance [RC] ASDIRECTED Care 01/14/20 07:25 Active Benzocaine [Hurricaine 20% [place]] Med 01/13/20 11:05 Active 1 ml MUCMEM Q4H PRN Benzocaine/Cetylpyrd/Menthol [Cepacol Sore Throat] Med 01/14/20 07:22 Active 1 lozenge MUCMEM Q2HR PRN Remove Patch Med 01/14/20 14:35 Active 0 ea TRDERM Q72H PRN diphenhydrAMINE [Benadryl] Med 01/14/20 07:48 Active 25 mg IVPUSH BEDTIME PRN Medication Orders Benzocaine (Hurricaine 20% [place]) 1 ml MUCMEM Q4H PRN PRN Reason: discomfort Benzocaine/Menthol (Cepacol Sore Throat) 1 lozenge MUCMEM Q2HR PRN PRN Reason: Sore Throat Diphenhydramine HCl (Benadryl) 25 mg IVPUSH BEDTIME PRN PRN Reason: Sleep Piperacillin Sod/Tazobactam (Sod 4.5 gm/ Sodium Chloride) 100 mls @ 25 mls/hr IV Q8H [facility] Last Admin: 01/14/20 02:57 Dose: 25 mls/hr Infusion: 01/14/20 00:18 Dose: 25 mls/hr Admin: 01/13/20 20:18 Dose: 25 mls/hr Infusion: 01/13/20 15:09 Dose: 25 mls/hr Admin: 01/13/20 11:09 Dose: 25 mls/hr Infusion: 01/13/20 08:12 Dose: 25 mls/hr Admin: 01/13/20 04:12 Dose: 25 mls/hr Infusion: 01/12/20 22:44 Dose: 25 mls/hr Admin: 01/12/20 18:44 Dose: 25 mls/hr Infusion: 01/12/20 14:53 Dose: 25 mls/hr Admin: 01/12/20 10:53 Dose: 25 mls/hr Infusion: 01/12/20 07:56 Dose: 25 mls/hr Admin: 01/12/20 03:56 Dose: 25 mls/hr Infusion: 01/12/20 00:46 Dose: 25 mls/hr Admin: 01/11/20 20:46 Dose: 25 mls/hr Infusion: 01/11/20 16:17 Dose: 25 mls/hr Admin: 01/11/20 12:17 Dose: 25 mls/hr Infusion: 01/11/20 06:41 Dose: 25 mls/hr Admin: 01/11/20 02:41 Dose: 25 mls/hr Infusion: 01/11/20 00:03 Dose: 25 mls/hr Admin: 01/10/20 20:03 Dose: 25 mls/hr Infusion: 01/10/20 15:13 Dose: 25 mls/hr Admin: 01/10/20 11:13 Dose: 25 mls/hr Infusion: 01/10/20 07:08 Dose: 25 mls/hr Admin: 01/10/20 03:08 Dose: 25 mls/hr Infusion: 01/10/20 00:16 Dose: 25 mls/hr Admin: 01/09/20 20:16 Dose: 25 mls/hr Potassium Chloride/Dextrose/Sod Cl (D5 1/2 Ns W/ 20 Meq/L Kcl) 1,000 mls @ 75 mls/hr IV ASDIRECTED [facility] Last Admin: 01/13/20 22:15 Dose: 75 mls/hr Infusion: 01/13/20 22:15 Dose: 75 mls/hr Admin: 01/13/20 09:20 Dose: 75 mls/hr Infusion: 01/13/20 08:05 Dose: 75 mls/hr Admin: 01/12/20 18:45 Dose: 75 mls/hr Infusion: 01/12/20 14:16 Dose: 75 mls/hr Admin: 01/12/20 00:56 Dose: 75 mls/hr Infusion: 01/11/20 21:41 Dose: 75 mls/hr Admin: 01/11/20 08:21 Dose: 75 mls/hr Ketorolac Tromethamine (Toradol) 15 mg IVPUSH Q6H PRN PRN Reason: Abdominal Pain Last Admin: 01/14/20 05:35 Dose: 15 mg Admin: 01/13/20 23:04 Dose: 15 mg Admin: 01/13/20 17:07 Dose: 15 mg Admin: 01/13/20 11:09 Dose: 15 mg Admin: 01/13/20 04:15 Dose: 15 mg Admin: 01/12/20 18:44 Dose: 15 mg Admin: 01/12/20 08:22 Dose: 15 mg Admin: 01/11/20 06:47 Dose: 15 mg Admin: 01/10/20 23:39 Dose: 15 mg Admin: 01/10/20 17:05 Dose: 15 mg Metoclopramide HCl (Reglan) 5 mg IVPUSH Q8H PRN PRN Reason: Nausea/Vomiting Last Admin: 01/13/20 17:07 Dose: 5 mg Admin: 01/13/20 11:07 Dose: 5 mg Admin: 01/12/20 20:27 Dose: 5 mg Admin: 01/12/20 08:32 Dose: 5 mg Admin: 01/11/20 17:37 Dose: 5 mg Miscellaneous Information (Remove Patch) 0 ea TRDERM Q72H PRN PRN Reason: REMOVE SCOPOLAMINE PATCH Ondansetron HCl (Zofran) 4 mg IVPUSH Q4H PRN PRN Reason: Nausea Last Admin: 01/14/20 05:35 Dose: 4 mg Admin: 01/13/20 20:32 Dose: 4 mg Admin: 01/13/20 14:15 Dose: 4 mg Admin: 01/13/20 08:16 Dose: 4 mg Admin: 01/13/20 04:15 Dose: 4 mg Admin: 01/13/20 00:02 Dose: 4 mg Admin: 01/12/20 16:02 Dose: 4 mg Admin: 01/12/20 12:10 Dose: 4 mg Admin: 01/12/20 06:12 Dose: 4 mg Admin: 01/12/20 02:11 Dose: 4 mg Admin: 01/11/20 21:51 Dose: 4 mg Admin: 01/11/20 16:52 Dose: 4 mg Admin: 01/11/20 12:52 Dose: 4 mg Admin: 01/11/20 08:20 Dose: 4 mg Admin: 01/11/20 02:54 Dose: 4 mg Admin: 01/10/20 23:49 Dose: 4 mg Admin: 01/10/20 12:09 Dose: 4 mg Admin: 01/09/20 23:40 Dose: 4 mg Scopolamine (Transderm-Scop) 1.5 mg TRDERM Q72H PRN PRN Reason: Nausea/Vomiting Last Admin: 01/11/20 15:14 Dose: 1.5 mg Sodium Chloride (Saline Flush) 10 ml FLUSH ASDIRECTED PRN PRN Reason: Keep Vein Open Last Admin: 01/10/20 23:49 Dose: 10 ml Admin: 01/09/20 00:50 Dose: 10 ml - Plan Plan (Free Text/Narrative):: POD5 lap appy with peritonitis. NGT put out 1500mL dark brown fluid. No nausea or vomiting. Abd soft but distended. Patient's main complaint is sore throat and lack of sleep after NGT placement. Reports passing flatus. - Can have three cups of water per 24 hrs - throat spray - Will order Benadryl for pain - Encourage ambulation
[2020-01-14] MEDS: Metoclopramide 10 MG/2 ML SDV IVPUSH PRN (08:26)
[2020-01-14] MEDS: D5 1/2 NS w/ 20 mEq/L KCl 1,000 ML IV SCH ×2 (11:54→22:55)
[2020-01-15] MEDS: Ketorolac 15 MG/ML SDV IVPUSH PRN ×2 (00:20→14:25)
[2020-01-15] MEDS: Piperacillin/Tazobactam 4.5 GM in Sodium Chloride 0.9% 100 ML IV SCH (04:18)
--- NOTE | 2020-01-15 10:38 | PCM.SURGPN ---
- General Info Date of Service: 01/15/20 POD#: 6 Pain Score: 5 - Review of Systems General: Reports: No Symptoms HEENT: Reports: No Symptoms Pulmonary: Reports: No Symptoms Cardiovascular: Reports: No Symptoms Gastrointestinal: Reports: Nausea Genitourinary: Reports: No Symptoms Musculoskeletal: Reports: No Symptoms Skin: Reports: No Symptoms - Patient Data Vitals - Most Recent: Last Vital Signs Temp 97.5 F 01/15/20 08:40 Pulse 56 L 01/15/20 08:40 Resp 16 01/15/20 08:40 BP 147/69 H 01/15/20 08:40 Pulse Ox 95 01/15/20 08:40 Weight - Most Recent: 89.63 kg I&O - Last 24 Hours: Intake & Output 01/14/20 01/15/20 01/15/20 22:59 06:59 14:59 Intake Total 1333 1170 Output Total 2050 700 Balance -717 470 Med Orders - Current: Current Medications Benzocaine (Hurricaine 20% Nunez) 1 ml MUCMEM Q4H PRN PRN Reason: discomfort Benzocaine/Menthol (Cepacol Sore Throat) 1 lozenge MUCMEM Q2HR PRN PRN Reason: Sore Throat Last Admin: 01/14/20 08:12 Dose: 1 lozenge Diphenhydramine HCl (Benadryl) 25 mg IVPUSH BEDTIME PRN PRN Reason: Sleep Last Admin: 01/14/20 20:39 Dose: 25 mg Piperacillin Sod/Tazobactam (Sod 4.5 gm/ Sodium Chloride) 100 mls @ 25 mls/hr IV Q8H SHERIDAN Last Admin: 01/15/20 04:18 Dose: 25 mls/hr Potassium Chloride/Dextrose/Sod Cl (D5 1/2 Ns W/ 20 Meq/L Kcl) 1,000 mls @ 75 mls/hr IV ASDIRECTED SHERIDAN Last Admin: 01/14/20 22:55 Dose: 75 mls/hr Ketorolac Tromethamine (Toradol) 15 mg IVPUSH Q6H PRN PRN Reason: Abdominal Pain Last Admin: 01/15/20 00:20 Dose: 15 mg Metoclopramide HCl (Reglan) 5 mg IVPUSH Q8H PRN PRN Reason: Nausea/Vomiting Last Admin: 01/14/20 08:26 Dose: 5 mg Miscellaneous Information (Remove Patch) 0 ea TRDERM Q72H PRN PRN Reason: REMOVE SCOPOLAMINE PATCH Ondansetron HCl (Zofran) 4 mg IVPUSH Q4H PRN PRN Reason: Nausea Last Admin: 01/14/20 18:09 Dose: 4 mg Phenol/Menthol (Chloraseptic Throat Nunez) 5 ml MUCMEM Q2H PRN PRN Reason: Sore Throat Scopolamine (Transderm-Scop) 1.5 mg TRDERM Q72H PRN PRN Reason: Nausea/Vomiting Last Admin: 01/11/20 15:14 Dose: 1.5 mg Sodium Chloride (Saline Flush) 10 ml FLUSH ASDIRECTED PRN PRN Reason: Keep Vein Open Last Admin: 01/10/20 23:49 Dose: 10 ml Discontinued Medications Acetaminophen (Tylenol) 650 mg PO Q6H SHERIDAN Last Admin: 01/11/20 15:22 Dose: Not Given Al Hydroxide/Mg Hydroxide (Mag-Al Plus) 30 ml PO ONETIME ONE Stop: 01/10/20 12:31 Last Admin: 01/10/20 12:42 Dose: 30 ml Famotidine (Pepcid) 20 mg IVPUSH ONETIME ONE Stop: 01/09/20 00:39 Last Admin: 01/09/20 00:50 Dose: 20 mg Fentanyl (Sublimaze) Confirm Administered Dose 250 mcg .ROUTE .STK-MED ONE Stop: 01/09/20 06:04 Fentanyl (Sublimaze) 100 mcg IVPUSH Q5M PRN PRN Reason: Pain Stop: 01/09/20 10:00 Glycopyrrolate () Confirm Administered Dose 1 mg .ROUTE .STK-MED ONE Stop: 01/09/20 08:03 Hydromorphone HCl (Dilaudid) 0.5 mg IVPUSH ONETIME ONE Stop: 01/09/20 00:39 Last Admin: 01/09/20 00:49 Dose: 0.5 mg Hydromorphone HCl (Dilaudid) 0.25 mg IVPUSH ONETIME ONE Stop: 01/09/20 01:36 Last Admin: 01/09/20 01:38 Dose: 0.25 mg Hydromorphone HCl (Dilaudid) 0.5 mg IVPUSH ONETIME ONE Stop: 01/09/20 02:58 Last Admin: 01/09/20 03:01 Dose: 0.5 mg Hydromorphone HCl (Dilaudid) 0.5 mg IVPUSH Q10M PRN PRN Reason: Pain (severe 7-10) Stop: 01/09/20 10:00 Hydromorphone HCl (Dilaudid) Confirm Administered Dose 0.5 mg .ROUTE .STK-MED ONE Stop: 01/09/20 07:15 Hydromorphone HCl (Dilaudid) 1 mg IVPUSH Q4H PRN PRN Reason: Abdominal Pain Last Admin: 01/13/20 00:02 Dose: 1 mg Sodium Chloride (Normal Saline) 1,000 mls @ 999 mls/hr IV ONETIME [facility] Last Admin: 01/09/20 00:45 Dose: 999 mls/hr Ertapenem 1 gm/ Sodium (Chloride) 50 mls @ 100 mls/hr IV ONETIME ONE Stop: 01/09/20 02:07 Last Admin: 01/09/20 01:48 Dose: 100 mls/hr Lactated Ringer's (Ringers, Lactated) 1,000 mls @ 999 mls/hr IV .BOLUS ONE Stop: 01/09/20 03:12 Last Admin: 01/09/20 02:55 Dose: 999 mls/hr Dextrose/Lactated Ringer's (Dextrose 5%-Lactated Ringers) 1,000 mls @ 150 mls/ hr IV ASDIRECTED [facility] Last Admin: 01/09/20 04:00 Dose: 150 mls/hr Dextrose/Lactated Ringer's (Dextrose 5%-Lactated Ringers) Confirm Administered Dose 1,000 mls @ as directed .ROUTE .STK-MED ONE Stop: 01/09/20 03:56 Last Admin: 01/09/20 05:22 Dose: Not Given Lactated Ringer's (Ringers, Lactated) Confirm Administered Dose 1,000 mls @ as directed .ROUTE .STK-MED ONE Stop: 01/09/20 06:05 Lidocaine HCl (Xylocaine-Mpf 1%) Confirm Administered Dose 6 mls @ as directed .ROUTE .ST-MED ONE Stop: 01/09/20 06:05 Lactated Ringer's (Ringers, Lactated) Confirm Administered Dose 1,000 mls @ as directed .ROUTE .STK-MED ONE Stop: 01/09/20 06:40 Lactated Ringer's (Ringers, Lactated) 1,000 mls @ 125 mls/hr IV ASDIRECTED [facility] Last Admin: 01/10/20 17:05 Dose: 125 mls/hr Piperacillin Sod/Tazobactam (Sod 4.5 gm/ Sodium Chloride) 100 mls @ 200 mls/hr IV ONETIME ONE Stop: 01/09/20 11:59 Last Admin: 01/09/20 11:44 Dose: 200 mls/hr Lidocaine HCl (Xylocaine 1%) Confirm Administered Dose 50 ml .ROUTE .STK-MED ONE Stop: 01/09/20 05:33 Last Admin: 01/09/20 06:31 Dose: 25 ml Meperidine HCl (Meperidine) 50 mg IVPUSH ONETIME ONE Stop: 01/09/20 07:01 Last Admin: 01/09/20 13:52 Dose: Not Given Meperidine HCl (Meperidine) Confirm Administered Dose 50 mg .ROUTE .STK-MED ONE Stop: 01/09/20 07:55 Metoclopramide HCl (Reglan) 5 mg IVPUSH Q8HR [facility] Metoprolol Tartrate (Lopressor) Confirm Administered Dose 5 mg .ROUTE .STK-MED ONE Stop: 01/09/20 08:11 Midazolam HCl (Versed 1 Mg/Ml) Confirm Administered Dose 2 mg .ROUTE .STK-MED ONE Stop: 01/09/20 06:03 Neostigmine Methylsulfate (Neostigmine Methylsulfate) Confirm Administered Dose 5 mg .ROUTE .STK-MED ONE Stop: 01/09/20 08:03 Ondansetron HCl (Zofran) 4 mg IVPUSH ONETIME ONE Stop: 01/09/20 00:39 Last Admin: 01/09/20 00:50 Dose: 4 mg Ondansetron HCl (Zofran) Confirm Administered Dose 8 mg .ROUTE .STK-MED ONE Stop: 01/09/20 07:19 Oxycodone/Acetaminophen (Percocet 325-5 Mg) 1 tab PO Q6H PRN PRN Reason: Abdominal Pain Last Admin: 01/10/20 08:50 Dose: 1 tab Propofol (Diprivan 20 Ml) Confirm Administered Dose 200 mg .ROUTE .STK-MED ONE Stop: 01/09/20 06:03 Rocuronium [place] (Zemuron) Confirm Administered Dose 50 mg .ROUTE .STK-MED ONE Stop: 01/09/20 06:07 Scopolamine (Transderm-Scop) 1.5 mg TRDERM Q72H ONE Stop: 01/10/20 06:12 Last Admin: 01/10/20 07:07 Dose: 1.5 mg - Exam Wound/Incisions: Healing Well General: Alert, Oriented, Cooperative Lungs: Clear to Auscultation, Normal Respiratory Effort Cardiovascular: Regular Rate, Regular Rhythm, No Murmurs GI/Abdominal Exam: Soft, No Organomegaly, Distended (mild), Tender ( appropriately) Sepsis Event Note - Evaluation Sepsis Screening Result: No Definite Risk - Focused Exam Vital Signs: Vital Signs Temp Pulse Resp BP Pulse Ox 01/15/20 08:40 97.5 F 56 L 16 147/69 H 95 01/15/20 04:14 97.5 F 58 L 16 150/77 H 96 Date Exam was Performed: 01/15/20 Time Exam was Performed: 10:34 - Problem List Review Problem List Initiated/Reviewed/Updated: No - My Orders Last 24 Hours: Active Orders 24 hr Category Date Time Status Clear Liquid Diet [DIET] Diet 01/15/20 Breakfast Active Remove Patch Med 01/14/20 14:35 Active 0 ea TRDERM Q72H PRN Medication Orders Benzocaine (Hurricaine 20% Nunez) 1 ml MUCMEM Q4H PRN PRN Reason: discomfort Benzocaine/Menthol (Cepacol Sore Throat) 1 lozenge MUCMEM Q2HR PRN PRN Reason: Sore Throat Last Admin: 01/14/20 08:12 Dose: 1 lozenge Diphenhydramine HCl (Benadryl) 25 mg IVPUSH BEDTIME PRN PRN Reason: Sleep Last Admin: 01/14/20 20:39 Dose: 25 mg Piperacillin Sod/Tazobactam (Sod 4.5 gm/ Sodium Chloride) 100 mls @ 25 mls/hr IV Q8H SHERIDAN Last Admin: 01/15/20 04:18 Dose: 25 mls/hr Infusion: 01/14/20 22:37 Dose: 25 mls/hr Admin: 01/14/20 18:37 Dose: 25 mls/hr Infusion: 01/14/20 14:49 Dose: 25 mls/hr Admin: 01/14/20 10:49 Dose: 25 mls/hr Infusion: 01/14/20 06:57 Dose: 25 mls/hr Admin: 01/14/20 02:57 Dose: 25 mls/hr Infusion: 01/14/20 00:18 Dose: 25 mls/hr Admin: 01/13/20 20:18 Dose: 25 mls/hr Infusion: 01/13/20 15:09 Dose: 25 mls/hr Admin: 01/13/20 11:09 Dose: 25 mls/hr Infusion: 01/13/20 08:12 Dose: 25 mls/hr Admin: 01/13/20 04:12 Dose: 25 mls/hr Infusion: 01/12/20 22:44 Dose: 25 mls/hr Admin: 01/12/20 18:44 Dose: 25 mls/hr Infusion: 01/12/20 14:53 Dose: 25 mls/hr Admin: 01/12/20 10:53 Dose: 25 mls/hr Infusion: 01/12/20 07:56 Dose: 25 mls/hr Admin: 01/12/20 03:56 Dose: 25 mls/hr Infusion: 01/12/20 00:46 Dose: 25 mls/hr Admin: 01/11/20 20:46 Dose: 25 mls/hr Infusion: 01/11/20 16:17 Dose: 25 mls/hr Admin: 01/11/20 12:17 Dose: 25 mls/hr Infusion: 01/11/20 06:41 Dose: 25 mls/hr Admin: 01/11/20 02:41 Dose: 25 mls/hr Infusion: 01/11/20 00:03 Dose: 25 mls/hr Admin: 01/10/20 20:03 Dose: 25 mls/hr Infusion: 01/10/20 15:13 Dose: 25 mls/hr Admin: 01/10/20 11:13 Dose: 25 mls/hr Infusion: 01/10/20 07:08 Dose: 25 mls/hr Admin: 01/10/20 03:08 Dose: 25 mls/hr Infusion: 01/10/20 00:16 Dose: 25 mls/hr Admin: 01/09/20 20:16 Dose: 25 mls/hr Potassium Chloride/Dextrose/Sod Cl (D5 1/2 Ns W/ 20 Meq/L Kcl) 1,000 mls @ 75 mls/hr IV ASDIRECTED SHERIDAN Last Admin: 01/14/20 22:55 Dose: 75 mls/hr Infusion: 01/14/20 22:55 Dose: 75 mls/hr Admin: 01/14/20 11:54 Dose: 75 mls/hr Infusion: 01/14/20 11:35 Dose: 75 mls/hr Admin: 01/13/20 22:15 Dose: 75 mls/hr Infusion: 01/13/20 22:15 Dose: 75 mls/hr Admin: 01/13/20 09:20 Dose: 75 mls/hr Infusion: 01/13/20 08:05 Dose: 75 mls/hr Admin: 01/12/20 18:45 Dose: 75 mls/hr Infusion: 01/12/20 14:16 Dose: 75 mls/hr Admin: 01/12/20 00:56 Dose: 75 mls/hr Infusion: 01/11/20 21:41 Dose: 75 mls/hr Admin: 01/11/20 08:21 Dose: 75 mls/hr Ketorolac Tromethamine (Toradol) 15 mg IVPUSH Q6H PRN PRN Reason: Abdominal Pain Last Admin: 01/15/20 00:20 Dose: 15 mg Admin: 01/14/20 17:55 Dose: 15 mg Admin: 01/14/20 11:53 Dose: 15 mg Admin: 01/14/20 05:35 Dose: 15 mg Admin: 01/13/20 23:04 Dose: 15 mg Admin: 01/13/20 17:07 Dose: 15 mg Admin: 01/13/20 11:09 Dose: 15 mg Admin: 01/13/20 04:15 Dose: 15 mg Admin: 01/12/20 18:44 Dose: 15 mg Admin: 01/12/20 08:22 Dose: 15 mg Admin: 01/11/20 06:47 Dose: 15 mg Admin: 01/10/20 23:39 Dose: 15 mg Admin: 01/10/20 17:05 Dose: 15 mg Metoclopramide HCl (Reglan) 5 mg IVPUSH Q8H PRN PRN Reason: Nausea/Vomiting Last Admin: 01/14/20 08:26 Dose: 5 mg Admin: 01/13/20 17:07 Dose: 5 mg Admin: 01/13/20 11:07 Dose: 5 mg Admin: 01/12/20 20:27 Dose: 5 mg Admin: 01/12/20 08:32 Dose: 5 mg Admin: 01/11/20 17:37 Dose: 5 mg Miscellaneous Information (Remove Patch) 0 ea TRDERM Q72H PRN PRN Reason: REMOVE SCOPOLAMINE PATCH Ondansetron HCl (Zofran) 4 mg IVPUSH Q4H PRN PRN Reason: Nausea Last Admin: 01/14/20 18:09 Dose: 4 mg Admin: 01/14/20 05:35 Dose: 4 mg Admin: 01/13/20 20:32 Dose: 4 mg Admin: 01/13/20 14:15 Dose: 4 mg Admin: 01/13/20 08:16 Dose: 4 mg Admin: 01/13/20 04:15 Dose: 4 mg Admin: 01/13/20 00:02 Dose: 4 mg Admin: 01/12/20 16:02 Dose: 4 mg Admin: 01/12/20 12:10 Dose: 4 mg Admin: 01/12/20 06:12 Dose: 4 mg Admin: 01/12/20 02:11 Dose: 4 mg Admin: 01/11/20 21:51 Dose: 4 mg Admin: 01/11/20 16:52 Dose: 4 mg Admin: 01/11/20 12:52 Dose: 4 mg Admin: 01/11/20 08:20 Dose: 4 mg Admin: 01/11/20 02:54 Dose: 4 mg Admin: 01/10/20 23:49 Dose: 4 mg Admin: 01/10/20 12:09 Dose: 4 mg Admin: 01/09/20 23:40 Dose: 4 mg Phenol/Menthol (Chloraseptic Throat Nunez) 5 ml MUCMEM Q2H PRN PRN Reason: Sore Throat Scopolamine (Transderm-Scop) 1.5 mg TRDERM Q72H PRN PRN Reason: Nausea/Vomiting Last Admin: 01/11/20 15:14 Dose: 1.5 mg Sodium Chloride (Saline Flush) 10 ml FLUSH ASDIRECTED PRN PRN Reason: Keep Vein Open Last Admin: 01/10/20 23:49 Dose: 10 ml Admin: 01/09/20 00:50 Dose: 10 ml - Assessment Assessment (Free Text/Narrative):: POD6 s/p lap appy with peritonitis. Has prolonged post op ileus requiring NGT and NPO. Progressing well now. Distension is mild, has flatus and BMs. Still has mild nausea. - Plan Plan (Free Text/Narrative):: - Removed NGT today - Start CLD. If does well with CLD, can advance to soft foods this afternoon. If advancing to soft diet, then dc IVF, DC IV meds and concert pain meds to PO percocet and PO zofran and stool softener. - continue ambulation - anticipate dc tomorrow if doing well
[2020-01-15] MEDS: Ondansetron 4 MG/2 ML SDV IVPUSH PRN (11:23)
[2020-01-15] MEDS ORDERED: D5 1/2 NS w/ 20 mEq/L KCl 1,000 ML IV SCH ×2 (11:45→17:15)
[2020-01-15] MEDS ORDERED: Acetaminophen/oxyCODONE 325-5 MG Tab PO PRN (14:43)
[2020-01-15] MEDS: Metoclopramide 10 MG/2 ML SDV IVPUSH PRN (15:01)
[2020-01-15] MEDS ORDERED: Iopamidol 612 MG/ML 100 ML Bottle IVPUSH ONE (16:01)
[2020-01-15] MEDS ORDERED: Sodium Chloride 0.9% 10 ML Syringe FLUSH ONE (16:01)
[2020-01-15] MEDS ORDERED: Iopamidol 612 MG/ML 50 ML SDV IVPUSH ONE (16:01)
[2020-01-15] MEDS ORDERED: Ketorolac 15 MG/ML SDV IVPUSH PRN (16:34)
--- NOTE | 2020-01-15 16:50 | CT ---
CT abdomen and pelvis Technique: Multiple axial sections were obtained from above the dome of the diaphragm inferiorly through the pubic symphysis. Intravenous contrast was utilized. No oral contrast has been given. Comparison: Prior CT abdomen and pelvis study performed as a renal stone protocol dated 01/09/20. Findings: Low density collection of complicated fluid is seen off the inferior tip of the cecum. This finding measures about 4.0 x 2.9 cm. This is an interval change from prior study and most likely represents an ill-defined abscess. Other inflammatory change that was seen on prior study shows improvement but not resolution. Visualized lung bases show nothing acute. Liver contains no focal parenchymal abnormality. Spleen appears within normal limits. Adrenal glands show no nodule. Kidneys show symmetric contrast enhancement. Minimal low density lesion measuring less than 5 mm is noted within the mid left kidney most likely due to minimal cyst. No additional abnormality is appreciated within the kidneys. Pancreas is normal and appearance. Aorta shows mild atherosclerotic change without aneurysm. No retroperitoneal adenopathy or mesenteric abnormalities are seen. There is a small amount of fluid being seen within the pelvis which appears to be simple and most likely representing reactive fluid. Fluid and air filled dilated small bowel loops are seen. Distal ileal loops are decompressed. Uncertain if findings represent obstruction from adhesion or represent ileus. Delayed images shows contrast within the distal ureters and bladder. Bone window settings were reviewed which shows no acute osseous finding. Impression: 1. Ill-defined low density structure off the inferior space cecum measuring 4.0 x 2.9 cm. This is most likely due to an abscess. Other inflammatory change seen previously has not yet completely resolved but is improved. 2. Small amount of fluid within the pelvis most likely reactive. 3. Small bowel dilatation either representing a mid to distal small bowel obstruction or small bowel ileus. Diagnostic code #3 This report was dictated in MDT
[2020-01-15] MEDS ORDERED: HYDROmorphone 1 MG/ML Syringe IVPUSH PRN (17:11)
[2020-01-15] MEDS ORDERED: Promethazine 12.5 MG in Sodium Chloride 0.9% 50 ML IV PRN (17:18)
[2020-01-15] MEDS ORDERED: Pantoprazole 40 MG Vial IVPUSH SCH (18:00)
--- NOTE | 2020-01-15 18:32 | PCM.DCSUM1 ---
Discharge Summary - Hospital Course Free Text/Narrative:: The patient underwent laparoscopic appendectomy on 01/08 for perforated appendectomy with an abscess and peritonitis. Surgery was uncomplicated. Post op , the patient was placed on Zosyn until today. Patient has had prolonged ileus marked by nausea and vomiting even though he has been passing flatus and BMs for the past 2 days. Had NGT 2 days (01/12-01/14). Today NGT was removed and the patient was tried on clears which he vomited and his nausea returned. CBC and CT scan were done. WBC was 8, CT revealed a 4x2.9 cm fluid collection at the cecum concerning for an abscess. SInce he is symptomatic with nausea and vomiting, I recommended that he has this abscess drained. Options are IR evaluation and possible drainage vs surgical drainage. Patient wanted to have IR evaluation first, hence the transfer. Diagnosis: Stroke: No - Discharge Data Discharge Date: 01/15/20 Discharge Disposition: Home, Self-Care 01 Condition: Good - Referral to Home Health Primary Care Physician: PCP None - Patient Summary/Data Operative Procedure(s) Performed: Lap appendectomy Hospital Course: see above - Patient Instructions Diet: NPO (with sips and chips) Activity: As Tolerated, No Lifting Over 20 Pounds (for 2 weeks) Driving: Do Not Drive (until 24 hours after anesthesia or while taking opioid pain medications) Showering/Bathing: May Shower Wound/Incision Care: Keep Operative Site/Wound Site Clean and Dry Notify Provider of: Fever, Increased Pain, Swelling and Redness, Drainage, Nausea and/or Vomiting - Discharge Plan *PRESCRIPTION DRUG MONITORING PROGRAM REVIEWED*: No *COPY OF PRESCRIPTION DRUG MONITORING REPORT IN PATIENT CEDRICK: No Oxygen Therapy Mode: Room Air Patient Handouts: Sepsis, Diagnosis, Adult, Laparoscopic Appendectomy, Adult, Care After, [id number], Laparoscopic Appendectomy, Adult Forms: ED Department Discharge Referrals: Chidi Welch MD [Physician] - (f/u with nasima meng in 2 weeks) - Discharge Summary/Plan Comment DC Time >30 min.: Yes (transfer coordination) - Patient Data Vitals - Most Recent: Last Vital Signs Temp 97.3 F 01/15/20 14:29 Pulse 50 L 01/15/20 14:29 Resp 16 01/15/20 14:29 BP 172/94 H 01/15/20 14:29 Pulse Ox 93 L 01/15/20 14:29 Weight - Most Recent: 89.63 kg I&O - Last 24 hours: Intake & Output 01/15/20 01/15/20 01/15/20 06:59 14:59 22:59 Intake Total 7501 126 7117 Output Total 700 Balance [id number] Lab Results - Last 24 hrs: Laboratory Results - last 24 hr 01/15/20 Range/Units 15:50 WBC 8.04 (4.23-9.07) K/mm3 RBC 4.17 L (4.63-6.08) M/mm3 Hgb 12.6 L (13.7-17.5) gm/dl Hct 38.4 L (40.1-51.0) % MCV 92.1 (79.0-92.2) fl MCH 30.2 (25.7-32.2) pg MCHC 32.8 (32.2-35.5) g/dl RDW Std Deviation 42.1 (35.1-43.9) fL Plt Count 503 H D (163-337) K/mm3 MPV 8.9 L (9.4-12.3) fl Neut % (Auto) 70.9 H (34.0-67.9) % Lymph % (Auto) 16.9 L (21.8-53.1) % Grayson % (Auto) 8.7 (5.3-12.2) % Eos % (Auto) 2.4 (0.8-7.0) Baso % (Auto) 0.4 (0.1-1.2) % Neut # (Auto) 5.70 H (1.78-5.38) K/mm3 Lymph # (Auto) 1.36 (1.32-3.57) K/mm3 Grayson # (Auto) 0.70 (0.30-0.82) K/mm3 Eos # (Auto) 0.19 (0.04-0.54) K/mm3 Baso # (Auto) 0.03 (0.01-0.08) K/mm3 Med Orders - Current: Current Medications Benzocaine (Hurricaine 20% Coolin) 1 ml MUCMEM Q4H PRN PRN Reason: discomfort Benzocaine/Menthol (Cepacol Sore Throat) 1 lozenge MUCMEM Q2HR PRN PRN Reason: Sore Throat Last Admin: 01/14/20 08:12 Dose: 1 lozenge Diphenhydramine HCl (Benadryl) 25 mg IVPUSH BEDTIME PRN PRN Reason: Sleep Last Admin: 01/14/20 20:39 Dose: 25 mg Hydromorphone HCl (Dilaudid) 1 mg IVPUSH Q4H PRN PRN Reason: Pain Last Admin: 01/15/20 17:38 Dose: 1 mg Potassium Chloride/Dextrose/Sod Cl (D5 1/2 Ns W/ 20 Meq/L Kcl) 1,000 mls @ 75 mls/hr IV ASDIRECTED SHERIDAN Last Admin: 01/15/20 17:41 Dose: 75 mls/hr Promethazine HCl 12.5 mg/ (Sodium Chloride) 50.5 mls @ 100 mls/hr IV Q6H PRN PRN Reason: Nausea/Vomiting Last Admin: 01/15/20 17:43 Dose: 100 mls/hr Ketorolac Tromethamine (Toradol) 15 mg IVPUSH Q6H PRN PRN Reason: Pain Last Admin: 01/15/20 16:44 Dose: 15 mg Miscellaneous Information (Remove Patch) 0 ea TRDERM Q72H PRN PRN Reason: REMOVE SCOPOLAMINE PATCH Pantoprazole Sodium (Protonix Iv) 40 mg IVPUSH Q12H [facility] Last Admin: 01/15/20 17:37 Dose: 40 mg Phenol/Menthol (Chloraseptic Throat Coolin) 5 ml MUCMEM Q2H PRN PRN Reason: Sore Throat Scopolamine (Transderm-Scop) 1.5 mg TRDERM Q72H PRN PRN Reason: Nausea/Vomiting Last Admin: 01/11/20 15:14 Dose: 1.5 mg Sodium Chloride (Saline Flush) 10 ml FLUSH ASDIRECTED PRN PRN Reason: Keep Vein Open Last Admin: 01/10/20 23:49 Dose: 10 ml Discontinued Medications Acetaminophen (Tylenol) 650 mg PO Q6H [facility] Last Admin: 01/11/20 15:22 Dose: Not Given Al Hydroxide/Mg Hydroxide (Mag-Al Plus) 30 ml PO ONETIME ONE Stop: 01/10/20 12:31 Last Admin: 01/10/20 12:42 Dose: 30 ml Famotidine (Pepcid) 20 mg IVPUSH ONETIME ONE Stop: 01/09/20 00:39 Last Admin: 01/09/20 00:50 Dose: 20 mg Fentanyl (Sublimaze) Confirm Administered Dose 250 mcg .ROUTE .STK-MED ONE Stop: 01/09/20 06:04 Fentanyl (Sublimaze) 100 mcg IVPUSH Q5M PRN PRN Reason: Pain Stop: 01/09/20 10:00 Glycopyrrolate () Confirm Administered Dose 1 mg .ROUTE .STK-MED ONE Stop: 01/09/20 08:03 Hydromorphone HCl (Dilaudid) 0.5 mg IVPUSH ONETIME ONE Stop: 01/09/20 00:39 Last Admin: 01/09/20 00:49 Dose: 0.5 mg Hydromorphone HCl (Dilaudid) 0.25 mg IVPUSH ONETIME ONE Stop: 01/09/20 01:36 Last Admin: 01/09/20 01:38 Dose: 0.25 mg Hydromorphone HCl (Dilaudid) 0.5 mg IVPUSH ONETIME ONE Stop: 01/09/20 02:58 Last Admin: 01/09/20 03:01 Dose: 0.5 mg Hydromorphone HCl (Dilaudid) 0.5 mg IVPUSH Q10M PRN PRN Reason: Pain (severe 7-10) Stop: 01/09/20 10:00 Hydromorphone HCl (Dilaudid) Confirm Administered Dose 0.5 mg .ROUTE .STK-MED ONE Stop: 01/09/20 07:15 Hydromorphone HCl (Dilaudid) 1 mg IVPUSH Q4H PRN PRN Reason: Abdominal Pain Last Admin: 01/13/20 00:02 Dose: 1 mg Sodium Chloride (Normal Saline) 1,000 mls @ 999 mls/hr IV ONETIME SHERIDAN Last Admin: 01/09/20 00:45 Dose: 999 mls/hr Ertapenem 1 gm/ Sodium (Chloride) 50 mls @ 100 mls/hr IV ONETIME ONE Stop: 01/09/20 02:07 Last Admin: 01/09/20 01:48 Dose: 100 mls/hr Lactated Ringer's (Ringers, Lactated) 1,000 mls @ 999 mls/hr IV .BOLUS ONE Stop: 01/09/20 03:12 Last Admin: 01/09/20 02:55 Dose: 999 mls/hr Dextrose/Lactated Ringer's (Dextrose 5%-Lactated Ringers) 1,000 mls @ 150 mls/ hr IV ASDIRECTED [facility] Last Admin: 01/09/20 04:00 Dose: 150 mls/hr Dextrose/Lactated Ringer's (Dextrose 5%-Lactated Ringers) Confirm Administered Dose 1,000 mls @ as directed .ROUTE .STK-MED ONE Stop: 01/09/20 03:56 Last Admin: 01/09/20 05:22 Dose: Not Given Lactated Ringer's (Ringers, Lactated) Confirm Administered Dose 1,000 mls @ as directed .ROUTE .STK-MED ONE Stop: 01/09/20 06:05 Lidocaine HCl (Xylocaine-Mpf 1%) Confirm Administered Dose 6 mls @ as directed .ROUTE .STK-MED ONE Stop: 01/09/20 06:05 Lactated Ringer's (Ringers, Lactated) Confirm Administered Dose 1,000 mls @ as directed .ROUTE .STK-MED ONE Stop: 01/09/20 06:40 Lactated Ringer's (Ringers, Lactated) 1,000 mls @ 125 mls/hr IV ASDIRECTED [facility] Last Admin: 01/10/20 17:05 Dose: 125 mls/hr Piperacillin Sod/Tazobactam (Sod 4.5 gm/ Sodium Chloride) 100 mls @ 25 mls/hr IV Q8H [facility] Last Admin: 01/15/20 04:18 Dose: 25 mls/hr Piperacillin Sod/Tazobactam (Sod 4.5 gm/ Sodium Chloride) 100 mls @ 200 mls/hr IV ONETIME ONE Stop: 01/09/20 11:59 Last Admin: 01/09/20 11:44 Dose: 200 mls/hr Potassium Chloride/Dextrose/Sod Cl (D5 1/2 Ns W/ 20 Meq/L Kcl) 1,000 mls @ 75 mls/hr IV ASDIRECTED [facility] Last Infusion: 01/15/20 11:39 Dose: 50 mls/hr Potassium Chloride/Dextrose/Sod Cl (D5 1/2 Ns W/ 20 Meq/L Kcl) 1,000 mls @ 50 mls/hr IV ASDIRECTED SHERIDAN Iopamidol (Isovue-300 (61%)) 100 ml IVPUSH ONETIME ONE Stop: 01/15/20 16:02 Last Admin: 01/15/20 16:21 Dose: 100 ml Iopamidol (Isovue-300 (61%)) 25 ml IVPUSH ONETIME ONE Stop: 01/15/20 16:02 Last Admin: 01/15/20 16:21 Dose: 25 ml Ketorolac Tromethamine (Toradol) 15 mg IVPUSH Q6H PRN PRN Reason: Abdominal Pain Last Admin: 01/15/20 14:25 Dose: 15 mg Lidocaine HCl (Xylocaine 1%) Confirm Administered Dose 50 ml .ROUTE .STK-MED ONE Stop: 01/09/20 05:33 Last Admin: 01/09/20 06:31 Dose: 25 ml Meperidine HCl (Meperidine) 50 mg IVPUSH ONETIME ONE Stop: 01/09/20 07:01 Last Admin: 01/09/20 13:52 Dose: Not Given Meperidine HCl (Meperidine) Confirm Administered Dose 50 mg .ROUTE .STK-MED ONE Stop: 01/09/20 07:55 Metoclopramide HCl (Reglan) 5 mg IVPUSH Q8HR [facility] Metoclopramide HCl (Reglan) 5 mg IVPUSH Q8H PRN PRN Reason: Nausea/Vomiting Last Admin: 01/15/20 15:01 Dose: 5 mg Metoprolol Tartrate (Lopressor) Confirm Administered Dose 5 mg .ROUTE .STK-MED ONE Stop: 01/09/20 08:11 Midazolam HCl (Versed 1 Mg/Ml) Confirm Administered Dose 2 mg .ROUTE .STK-MED ONE Stop: 01/09/20 06:03 Neostigmine Methylsulfate (Neostigmine Methylsulfate) Confirm Administered Dose 5 mg .ROUTE .STK-MED ONE Stop: 01/09/20 08:03 Ondansetron HCl (Zofran) 4 mg IVPUSH ONETIME ONE Stop: 01/09/20 00:39 Last Admin: 01/09/20 00:50 Dose: 4 mg Ondansetron HCl (Zofran) Confirm Administered Dose 8 mg .ROUTE .STK-MED ONE Stop: 01/09/20 07:19 Ondansetron HCl (Zofran) 4 mg IVPUSH Q4H PRN PRN Reason: Nausea Last Admin: 01/15/20 11:23 Dose: 4 mg Oxycodone/Acetaminophen (Percocet 325-5 Mg) 1 tab PO Q6H PRN PRN Reason: Abdominal Pain Last Admin: 01/10/20 08:50 Dose: 1 tab Oxycodone/Acetaminophen (Percocet 325-5 Mg) 1 tab PO Q6H PRN PRN Reason: Pain (severe 7-10) Propofol (Diprivan 20 Ml) Confirm Administered Dose 200 mg .ROUTE .STK-MED ONE Stop: 01/09/20 06:03 Rocuronium [place] (Zemuron) Confirm Administered Dose 50 mg .ROUTE .STK-MED ONE Stop: 01/09/20 06:07 Scopolamine (Transderm-Scop) 1.5 mg TRDERM Q72H ONE Stop: 01/10/20 06:12 Last Admin: 01/10/20 07:07 Dose: 1.5 mg Sodium Chloride (Saline Flush) 10 ml FLUSH ONETIME ONE Stop: 01/15/20 16:02 Last Admin: 01/15/20 16:22 Dose: 10 ml
[2020-01-15] MEDS ORDERED: HYDROmorphone 0.5 MG/0.5 ML Syringe IVPUSH ONE (18:41)
== END 2020-01-15 19:59 | disposition home or self-care (01) | DRG 339 ==
LOC: JD.ED 00:08 → JD.SDS 05:14 → JD.MS 10:00 → OBSVTOIN 01-10 14:15 → JD.MS 01-10 15:36
PROVIDERS: ADMIT Surgery; ATTEND Surgery
PROC: 0DTJ4ZZ Resection of Appendix, Percutaneous Endoscopic Approach (ICD-10-PCS; principal; 2020-01-09)
PROC: 0DH67UZ Insertion of Feeding Device into Stomach, Via Natural or Artificial Opening (ICD-10-PCS; 2020-01-10)
DX: K35.33 Acute appendicitis with perforation, localized peritonitis, and gangrene, with abscess (principal); K56.7 Ileus, unspecified
CPT/HCPCS: 00840; 36415; 74176; 74176-26; 74177; 74177-26; 80048; 80053; 81001; 83735; 84100; 85007; 85025; 85027; 86140; 94760; 96361; 96365; 96366; 96367; 96375; 96376; 99284; 99285-25; A9270-GY; C9113; G0378; J0330; J1170; J1200; J1335; J1885; J2001; J2175; J2250; J2405; J2543; J2550; J2704; J2710; J2765; J3010; J3480; J3490; J7030; J7050; J7120; J7121; Q9967

== ENCOUNTER 2023-10-07 16:46 | Emergency (ER) | payer MEDICAID ==
[2023-10-07] MEDS ORDERED: Ondansetron 4 MG/2 ML SDV IVPUSH ONE (17:09)
[2023-10-07] MEDS ORDERED: Aspirin 81 MG Tab.Chew PO ONE (17:09)
[2023-10-07] MEDS ORDERED: LORazepam 2 MG/ML SDV IVPUSH ONE (17:15)
[2023-10-07 17:20] LABS: BASOPHILS PERCENT AUTO 0.4 % (0.0-1.0); EOSINOPHILS ABSOLUTE AUTO 0.2 K/mm3 (0.0-0.4); EOSINOPHILS PERCENT AUTO 1.7 % (0.0-6.0); HEMATOCRIT 46.7 % (42.0-52.0); HEMOGLOBIN 15.6 gm/dl (14.0-18.0); IMMATURE GRAN ABSOLUTE AUTO 0.06 K/mm3 (0.00-0.05); IMMATURE GRAN PERCENT AUTO 0.6 % (0.0-0.4); LYMPHOCYTES PERCENT AUTO 18.7 % (24.0-44.0); MEAN CORPUSCULAR HEMOGLOBIN 29.5 pg (28.0-32.0); MEAN CORPUSCULAR HGB CONC 33.4 g/dl (32.0-36.0); MEAN CORPUSCULAR VOLUME 88.3 fl (83.0-99.0); MONOCYTES ABSOLUTE AUTO 0.7 K/mm3 (0.0-0.8); MONOCYTES PERCENT AUTO 6.7 % (0.0-8.0); NEUTROPHILS ABSOLUTE AUTO 7.7 K/mm3 (1.8-7.7); NEUTROPHILS PERCENT AUTO 71.9 % (41.0-71.0); PLATELET COUNT,PLT 396 K/mm3 (150-400); RED BLOOD CELL COUNT 5.29 M/mm3 (4.52-5.90); WHITE BLOOD CELL COUNT,WBC 10.63 K/mm3 (3.9-11.3)
[2023-10-07 17:38] LABS: A/G RATIO 0.8 (1-2); ALANINE AMINOTRANSFERASE,ALT 51 U/L (16-63); ALBUMIN 4.1 g/dl (3.4-5.0); ALKALINE PHOSPHATASE 63 U/L (46-116); ANION GAP 17.7 (5-15); ASPARTATE AMNIOTRANSFERASE,AST 36 U/L (15-37); BILIRUBIN TOTAL 0.3 mg/dL (0.2-1.0); BLOOD UREA NITROGEN,BUN 10 mg/dL (7-18); BUN/CREATININE RATIO 7.1 (14-18); C-REACTIVE PROTEIN <0.2 mg/dL (<1.0); CALCIUM 9.5 mg/dL (8.5-10.1); CARBON DIOXIDE,CO2 25 mEq/L (21-32); CHLORIDE,CL 101 mEq/L (98-107); CREATININE 1.4 mg/dL (0.7-1.3); EST CRCL DRUG DOSING (CG) 68.74 mL/min; ESTIMATED GFR 58 mL/min (>60); GLUCOSE RANDOM 127 mg/dL (70-99); POTASSIUM,K 3.7 mEq/L (3.5-5.1); PROTEIN TOTAL,TP 9.2 g/dl (6.4-8.2); SODIUM,NA 140 mEq/L (136-145); TROPONIN I HIGH SENSITIVITY 12 pg/mL (<=76)
[2023-10-07 18:05] LABS: CORONAVIRUS COVID-19 NAA NEGATIVE (NEGATIVE); INFLUENZA A NAA NEGATIVE (NEGATIVE); RESPIRATORY SYNCYTIAL VIR NAA NEGATIVE (NEGATIVE)
[2023-10-07] MEDS ORDERED: Iopamidol 755 Mg/ML 100 ML Bottle IVPUSH ONE (18:27)
[2023-10-07] MEDS ORDERED: Sodium Chloride 0.9% 100 ML IV SCH (18:30)
[2023-10-07] MEDS ORDERED: Ketorolac 30 MG/ML SDV IVPUSH ONE (19:40)
== END 2023-10-07 20:17 ==
LOC: JD.ED 16:46
DX: R07.89 Other chest pain (principal); Z20.822 Contact with and (suspected) exposure to COVID-19
CPT/HCPCS: 0241U; 36415; 71046; 71275; 80053; 84484; 85025; 85379; 86140; 93005; 96374; 96375; 99285; A9270; J1885; J2060; J2405; J3490; Q9967